=== PATIENT | male | born 1965 | race Caucasian/White ===

== ENCOUNTER 2018-01-08 06:42 | Emergency (ER) | payer BC, OTHER ==
[~2018-01-08] VITALS: Ht 167.6 cm; Wt 86.2 kg
[2018-01-08 06:45] VITALS: TEMP 36.7; Ht 167.6 cm; Wt 86.2 kg
[2018-01-08 08:06] LABS: BASO % 0.7 %; BASO ABS # 0.02 K/uL (0-0.2); EOS % 1.3 %; EOS ABS # 0.04 K/uL (0-0.5); HEMOGLOBIN 15.1 g/dL (14.0-18.0); IG# 0.01 K/uL (0.00-0.02); LYMPH % 36.2 %; LYMPH ABS # 1.11 K/uL (1.2-3.4); MEAN CELL VOLUME 87.3 fL (80-100); MEAN CORPUSCULAR HEMOGLOBIN 31.4 pg (25-34); MEAN PLATELET VOLUME 9.1 fL (7.4-10.4); MONO % 13.4 %; MONO ABS # 0.41 K/uL (0.11-0.59); NEUT % 48.1 %; NEUT ABS # 1.48 K/uL (1.4-6.5); PLATELET COUNT 127 K/uL (130-400); RED CELL DISTRIBUTION WIDTH CV 13.2 % (11.5-14.5); RED CELL DISTRIBUTION WIDTH SD 41.7 fL (36.4-46.3); WHITE BLOOD COUNT 3.07 K/uL (4.8-10.8)
--- NOTE | 2018-01-08 08:16 | DIAGNOSTIC IMAGING REPORT ---
HEAD WITHOUT CONTRAST (CT) CLINICAL HISTORY: 52 years-old Male with L FACIAL DROOP. Acute left-sided facial droop TECHNIQUE: Multiple axial CT images of the head were obtained without contrast. A dose lowering technique was utilized adhering to the principles of ALARA. CT DOSE: 614.27 mGy.cm COMPARISON: None. FINDINGS: No acute intracranial hemorrhage, midline shift, intracranial mass, hydrocephalus, territorial ischemia or abnormal extra-axial collection. Nonspecific mild asymmetric prominence of the right temporal horn lateral ventricle. The calvarium is intact. The paranasal sinuses, mastoid air cells, and middle ear cavities are clear. IMPRESSION: No acute intracranial abnormality. The above report was generated using voice recognition software. It may contain grammatical, syntax or spelling errors. Electronically signed by: Saulo Orozco M.D. 01/08/2018 8:14 AM Dictated Date/Time: 01/08/2018 8:11 AM
[2018-01-08 08:24] LABS: ALT/SGPT 26 U/L (12-78); BLOOD UREA NITROGEN 15 mg/dl (7-18); CARBON DIOXIDE 26 mmol/L (21-32); CREATININE 0.92 mg/dl (0.60-1.40); GLUCOSE 107 mg/dl (70-99); POTASSIUM 3.7 mmol/L (3.5-5.1); SODIUM 139 mmol/L (136-145)
[2018-01-08 08:28] LABS: ALKALINE PHOSPHATASE 89 U/L (45-117); AST/SGOT 18 U/L (15-37); TOTAL PROTEIN 7.4 gm/dl (6.4-8.2)
[2018-01-08 08:32] LABS: PTT PATIENT 25.4 SECONDS (21.0-31.0)
[2018-01-08] MEDS ORDERED: DEXAMETHASONE **PF** INJ 10 MG/ML VIAL IV ONE (09:15)
[2018-01-08] MEDS ORDERED: VALA1TAB2 PO (09:31)
[2018-01-08] MEDS ORDERED: PRED20TA PO (09:31)
--- NOTE | 2018-01-08 09:31 | EMERGENCY ROOM VISIT NOTE ---
ED Visit Note First contact with patient: 07:21 CHIEF COMPLAINT: Left facial numbness and weakness 2 days HISTORY OF PRESENT ILLNESS: Patient is an otherwise healthy 52-year-old white male who presents the emergency department for left-sided facial numbness. He states that he woke up with his symptoms about 48 hours ago. He reports that the left side of his face is numb, and that he is unable to close his left eyelid completely. He states that coworkers told him the left side of his face looked different. He notes asymmetry in his face when he tries to smile, and has had difficulty eating and drinking as he has been dribbling out the left side of his mouth. He called his family doctor yesterday and was referred to the emergency department, but was too tired after he got home from work so thus presented early this morning. He reports a mild headache prior to the onset of his symptoms on Saturday which was alleviated with Aleve. He otherwise reports that he has been feeling well without any recent illnesses or fever or chills. He states that his vision is normal, sensation and taste of tongue is normal. The patient denies any neck pain. He does [employer] work. REVIEW OF SYSTEMS: Review of systems as per HPI. All other systems reviewed were negative. 10 systems reviewed. PMH: Electronic medical records are reviewed and summarized as above/below. See Problem List. Luci. SOCIAL HISTORY: Patient lives at home by himself. Employed. Non-smoker. PHYSICAL EXAM: Vital Signs: Reviewed Nurse's notes. CONSTITUTIONAL: Patient is a pleasant, well-appearing 52-year-old white male who is awake and alert and in no acute distress. EYES: Pupils equal, round, reactive to light and accommodation. EOMs intact without nystagmus. Sclera are anicteric. ENT: Tympanic membranes intact, with normal landmarks. External canals are clear. Oral and nasopharynx are clear. Mucous membranes are moist, no lesions , tongue and gums appear normal. NECK: No bruits auscultated. Supple without lymphadenopathy. No thyromegaly. No meningeal signs. Full active range of motion without discomfort. CARDIOVASCULAR: Regular rate and rhythm, with normal S1 and S2, no murmur or gallop or rub is heard. No carotid bruits auscultated. No JVD. Peripheral pulses easily palpable. RESPIRATORY: Breath sounds equal and clear to auscultation without wheezes, rales, or rhonchi heard. Full and equal chest expansion without accessory muscle use or retractions. INTEGUMENTARY: No lesions or rash, normal skin turgor. LYMPH: No lymphadenopathy. NEURO: Patient is awake, alert and oriented 4. Cranial nerves II through and VIII through XII are intact. Examination of the 7th cranial nerve showed that the patient is unable to raise his left eyebrow or close his left eye completely. He has droop of the left side of his face, has loss of the nasolabial crease. He is unable to keep his left eye closed against resistance , has asymmetry with smile and frown. Upper and lower extremity strength is equal and symmetrical bilaterally. Normal DTRs. Normal gait. EMERGENCY DEPARTMENT COURSE: The patient was seen and evaluated as above. 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 He is an otherwise healthy 52-year-old male. IV lock was initiated and laboratory studies were collected. Head CT was performed to evaluate any intracranial pathology, and was negative. CBC with differential does not note a leukocytosis , white count is actually low at 3.07. His sed rate and CRP are not elevated. Electrolytes, renal function, and LFTs are unremarkable. Lyme screen is negative. The patient was discussed with attending physician. He was given valacyclovir 1000 mg orally and Decadron 10 mg IV. Treatment recommendations were reviewed with the patient. He will be placed on a week of valacyclovir and prednisone. Eye care was also discussed. He was encouraged to follow-up with his primary care provider for recheck, and welcome to return to the emergency department at any point for worsening symptoms. Medication reconciliation: I attest that I have personally reviewed the patient' s current medication list. Blood pressure screening: Patient was found to have a slightly elevated blood pressure due to circumstances. I do not believe that the patient requires hypertension monitoring. Differential diagnoses entertained included Valenzuela's palsy, facial nerve palsy, herpes zoster infection, otitis media, Lyme disease, Guillain [place], stroke, mass or malignancy, among others. HEAD WITHOUT CONTRAST (CT) CLINICAL HISTORY: 52 years-old Male with L FACIAL DROOP. Acute left-sided facial droop TECHNIQUE: Multiple axial CT images of the head were obtained without contrast. A dose lowering technique was utilized adhering to the principles of ALARA. CT DOSE: 614.27 mGy.cm COMPARISON: None. FINDINGS: No acute intracranial hemorrhage, midline shift, intracranial mass, hydrocephalus, territorial ischemia or abnormal extra-axial collection. Nonspecific mild asymmetric prominence of the right temporal horn lateral ventricle. The calvarium is intact. The paranasal sinuses, mastoid air cells, and middle ear cavities are clear. IMPRESSION: No acute intracranial abnormality. Problem List Surgical Problems: (1) History of hip surgery Status: Resolved Current/Historical Medications Scheduled Prednisone (Prednisone), 3 TAB PO DAILY Valacyclovir Hcl (Valtrex), 1,000 MG PO TID Allergies Coded Allergies: No Known Allergies (Unverified , 01/08/18) Vital Signs Date Time Temp Pulse Resp B/P (MAP) Pulse Ox O2 Delivery O2 Flow Rate FiO2 01/08/18 09:33 61 16 143/100 95 Room Air 01/08/18 08:40 56 16 127/92 96 Room Air 01/08/18 06:45 36.7 77 18 139/105 97 Room Air Laboratory Results 01/08/18 08:00 Red Blood Count 4.81, Mean Corpuscular Volume 87.3, Mean Corpuscular Hemoglobin 31.4, Mean Corpuscular Hemoglobin Concent 36.0, Mean Platelet Volume 9.1, Neutrophils (%) (Auto) 48.1, Lymphocytes (%) (Auto) 36.2, Monocytes (%) (Auto) 13.4, Eosinophils (%) (Auto) 1.3, Basophils (%) (Auto) 0.7, Neutrophils # (Auto ) 1.48, Lymphocytes # (Auto) 1.11, Monocytes # (Auto) 0.41, Eosinophils # (Auto ) 0.04, Basophils # (Auto) 0.02 01/08/18 08:00 Test 01/08/18 08:00 White Blood Count 3.07 K/uL (4.8-10.8) Red Blood Count 4.81 M/uL (4.7-6.1) Hemoglobin 15.1 g/dL (14.0-18.0) Hematocrit 42.0 % (42-52) Mean Corpuscular Volume 87.3 fL (80-100) Mean Corpuscular Hemoglobin 31.4 pg (25-34) Mean Corpuscular Hemoglobin Concent 36.0 g/dl (32-36) Platelet Count 127 K/uL (130-400) Mean Platelet Volume 9.1 fL (7.4-10.4) Neutrophils (%) (Auto) 48.1 % Lymphocytes (%) (Auto) 36.2 % Monocytes (%) (Auto) 13.4 % Eosinophils (%) (Auto) 1.3 % Basophils (%) (Auto) 0.7 % Neutrophils # (Auto) 1.48 K/uL (1.4-6.5) Lymphocytes # (Auto) 1.11 K/uL (1.2-3.4) Monocytes # (Auto) 0.41 K/uL (0.11-0.59) Eosinophils # (Auto) 0.04 K/uL (0-0.5) Basophils # (Auto) 0.02 K/uL (0-0.2) RDW Standard Deviation 41.7 fL (36.4-46.3) RDW Coefficient of Variation 13.2 % (11.5-14.5) Immature Granulocyte % (Auto) 0.3 % Immature Granulocyte # (Auto) 0.01 K/uL (0.00-0.02) Erythrocyte Sedimentation Rate 9 mm/hr (0-14) Prothrombin Time 10.3 SECONDS (9.0-12.0) Prothromb Time International Ratio 1.0 (0.9-1.1) Activated Partial Thromboplast Time 25.4 SECONDS (21.0-31.0) Partial Thromboplastin Ratio 1.0 Anion Gap 5.0 mmol/L (3-11) Est Creatinine Clear Calc Drug Dose 97.7 ml/min Estimated GFR () 111.2 Estimated GFR (Non- 96.0 BUN/Creatinine Ratio 16.0 (10-20) Calcium Level 9.0 mg/dl (8.5-10.1) Magnesium Level 2.4 mg/dl (1.8-2.4) Total Bilirubin 0.5 mg/dl (0.2-1) Aspartate Amino Transf (AST/SGOT) 18 U/L (15-37) Alanine Aminotransferase (ALT/SGPT) 26 U/L (12-78) Alkaline Phosphatase 89 U/L (45-117) C-Reactive Protein < 0.29 mg/dl (0-0.29) Total Protein 7.4 gm/dl (6.4-8.2) Albumin 4.0 gm/dl (3.4-5.0) Globulin 3.4 gm/dl (2.5-4.0) Albumin/Globulin Ratio 1.2 (0.9-2) Lyme Disease IgG Antibody NEG (NEG) Lyme Disease IgM Antibody NEG (NEG) Medications Administered Medications (Trade) Dose Ordered Sig/Yadiel Route Start Time Stop Time Status Last Admin Dose Admin Dexamethasone Sodium Phosphate (Dexamethasone Inj Pf) 10 mg NOW ONCE IV 01/08/18 09:15 01/08/18 09:16 DC 01/08/18 09:24 10 MG Valacyclovir HCl (Valtrex Tab) 1,000 mg NOW ONCE PO 01/08/18 09:15 01/08/18 09:16 DC 01/08/18 09:24 1,000 MG Departure Information Impression Primary Impression: Valenzuela's palsy Prescriptions Valacyclovir Hcl (VALTREX) 1 Gm Tab 1000 MG PO TID for 7 Days, #21 TAB Prov: Fara Mary PA 01/08/18 Prednisone (Prednisone) 20 Mg Tab 3 TAB PO DAILY for 7 Days, #21 TAB Prov: Fara Mary PA 01/08/18 Referrals Swetha Littlejohn C.RXaviNWandy (PCP) Patient Instructions [facility] Additional Instructions Prednisone 60mg: Once daily until the prescription is finished. It is best to take this earlier in the day as some patients note occasional difficulty falling asleep when taken in the late evening. Valacyclovir : 1000 mg three times daily for one week. Lubricating eye drops (available over the counter) should be applied every hour while the patient is awake Use a lubricating eye ointment at night and wear protective glasses/goggle/eye shield. Patches can be used at night, but tape should not be placed directly on the eyelid since the patch could slip and abrade the cornea. Follow up with your family doctor next week for recheck.
[2018-01-08 09:33] VITALS: BP 143/100; PULSE 61; O2SAT 95
== END 2018-01-08 09:42 | disposition home or self-care (01) ==
LOC: C.EDB 06:43
DX: G51.0 Bell's palsy (principal); Z98.890 Other specified postprocedural states

== ENCOUNTER 2021-09-02 09:57 | Inpatient (IN) ==
[2021-09-02] MEDS ORDERED: dexAMETHasone**PF** 10 MG/ML VIAL IV ONE (10:28)
--- NOTE | 2021-09-02 10:33 | Emergency Department Note ---
History of Present Illness General Chief complaint: Shortness of Breath/Dyspnea Stated complaint: COVID LAST SATURDAY SOB Time Seen by Provider: 09/02/21 10:15 Source: patient Mode of arrival: ambulatory Limitations: no limitations History of Present Illness Provider complaint: Shortness of breath, cough, Covid positive Onset (ago): day(s) 10 Exacerbated By: + none Associated symptoms: + chest pain, + cough, + fever/chills, + malaise and + shortness of breath; no headaches, no loss of appetite or no nausea/vomiting Treatments prior to arrival: none This is a 55-year-old male who presents emergency department with known coronavirus complaining of increased cough and shortness of breath. Patient states his symptoms began approximately 12 days ago with mild rhinorrhea and sore throat. He states symptoms began to involve the first few days and he was seen and evaluated here and tested positive for Covid. He was told to quarantine for 10 days. He states he has been doing so and would have been his last day of quarantine. Patient states he does live alone, however is concerned that his cough and breathing has gotten worse. Patient complains of soreness in his bilateral ribs and bilateral flank from frequent forceful coughing. He states his cough produces a yellow-colored sputum, he denies hemoptysis. He states he did have one episode of diarrhea however denies any other nausea or vomiting or change in bowel movements. Denies any leg swelling, rash or sores. Patient states he is intermittently had low-grade fevers. Patient states when he was a child he does have asthma and is young adult he did smoke although states he gave that up several years ago. He states he did contact his PCP after his positive Covid test and was started on prednisone and azithromycin. He states today would be his last day of azithromycin and he is in the middle of a prednisone taper that would end on Saturday. On room air, patient 86% at bedside during my interview. Pt seen during a time of high acuity and national emergency pandemic while wearing PPE. Home Medications Medication Instructions Recorded Confirmed Type ibuprofen 600 mg tablet 600 mg PO Q8H PRN 08/25/21 09/02/21 History albuterol sulfate 90 mcg/actuation 2 puff INHALATION QID PRN #8.5 g 08/29/21 09/02/21 Rx aerosol inhaler azithromycin 500 mg tablet 500 mg PO DAILY 5 Days #5 tab 08/29/21 09/02/21 Rx prednisone 20 mg tablet 20 mg PO .COMPLEX #18 tab 08/29/21 09/02/21 Rx naproxen sodium 220 mg tablet 680 mg PO Q8H PRN 09/02/21 09/02/21 History (Aleve) Allergies Allergy/AdvReac Type Severity Reaction Status Date / Time No Known Allergies Allergy Unverified 09/02/21 11:03 Past Med/Surg History Medical History (Updated 09/02/21 @ 20:55 by Mayuri Naranjo DO) Acute sinus infection Bronchitis Cough Social History Smoking Status: Former smoker Tobacco Type: Cigarettes Hx Alcohol Use: Yes Alcohol type: beer Hx Substance Use: No Preferred Language: Tajik Communication Ability: Effective 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 Beliefs That Will Affect Care: None Current Living Situation: Alone Other Information That Helps Us Care for You: No Feels Safe at Home: Yes Safety Concerns: Feels Safe At This Time Assistive Devices: Glasses and Oxygen - Continuous Review of Systems A total of 10 systems reviewed and were otherwise negative All systems reviewed & are unremarkable except as noted in HPI & below Physical Exam Vital Signs Vital Signs - 24 hr 09/02/21 10:03 09/02/21 11:10 09/02/21 11:21 Temperature 37.2 C Temperature Source Temporal Artery Scan Pulse Rate 103 H 93 H Pulse Rate from SpO2 Sensor 92 H Pulse Rhythm Regular Pulse Strength Normal Respiratory Rate 20 22 Respiratory Effort / Characteristics Non-Labored Spontaneous Respiratory Depth Normal Blood Pressure 136/96 111/84 Blood Pressure Mean 109 93 Blood Pressure Position Sitting Pulse Oximetry 88 L 92 Oxygen Delivery Method Room Air Nasal Cannula Oxygen Flow Rate 2 Sepsis Recent Fever Within 48 Hours No Sepsis New/Unexplained Change in Mental Status N/A Sepsis Action Taken by Nursing No Action Required 09/02/21 11:30 09/02/21 12:00 09/02/21 12:30 Temperature Temperature Source Pulse Rate 97 H 86 85 Pulse Rate from SpO2 Sensor 101 H 85 85 Pulse Rhythm Pulse Strength Respiratory Rate 23 23 20 Respiratory Effort / Characteristics Respiratory Depth Blood Pressure 90/76 L 126/94 Blood Pressure Mean 80 104 Blood Pressure Position Pulse Oximetry 93 93 93 Oxygen Delivery Method Nasal Cannula Nasal Cannula Nasal Cannula Oxygen Flow Rate 2 2 3 Sepsis Recent Fever Within 48 Hours Sepsis New/Unexplained Change in Mental Status Sepsis Action Taken by Nursing 09/02/21 13:00 Temperature Temperature Source Pulse Rate 89 Pulse Rate from SpO2 Sensor Pulse Rhythm Pulse Strength Respiratory Rate 18 Respiratory Effort / Characteristics Respiratory Depth Blood Pressure Blood Pressure Mean Blood Pressure Position Pulse Oximetry Oxygen Delivery Method Oxygen Flow Rate Sepsis Recent Fever Within 48 Hours Sepsis New/Unexplained Change in Mental Status Sepsis Action Taken by Nursing GENERAL: alert, unwell appearing, well nourished, no distress, non-toxic EYE EXAM: normal conjunctiva, PERRL and EOM's grossly intact OROPHARYNX: no exudate, no erythema, lips, buccal mucosa, and tongue normal and mucous membranes are moist NECK: supple, no nuchal rigidity, no adenopathy, non-tender LUNGS: Clear but decreased to auscultation. Normal chest wall mechanics, no w/r/r HEART: no murmurs, S1 normal and S2 normal ABDOMEN: abdomen soft, non-tender, normo-active bowel sounds, no masses, no rebound or guarding. BACK: Back is symmetrical on inspection and there is no deformity, no midline tenderness, no CVA tenderness. SKIN: no rashes and no bruising UPPER EXTREMITIES: upper extremities are grossly normal. FROM, nml pulses b/l. LOWER EXTREMITIES: No pitting edema. FROM, nml pulses b/l. NEURO EXAM: Normal sensorium, cranial nerves II-XII grossly intact, normal speech, no gross weakness of arms, no gross weakness of legs. Gross sensation intact. Course Administered Medications Albuterol (Albut/Ipratrop 3mg/0.5mg Neb 3 Ml Vial) 3 ml NEB Q4R PRN PRN Reason: Dyspnea Stop: 10/03/21 14:31 Last Admin: 09/03/21 15:11 Dose: 3 ml Documented by: [id number] Benzonatate (Benzonatate 100 Mg Capsule) 200 mg PO TID PRN PRN Reason: cough Stop: 10/03/21 08:59 Last Admin: 09/03/21 07:45 Dose: 200 mg Documented by: [id number] Admin: 09/02/21 21:45 Dose: 200 mg Documented by: [id number] Dexamethasone 6 mg/ Syringe 1.5 mls @ 1 mls/min IV DAILY TAYLOR Stop: 09/13/21 08:59 Last Admin: 09/03/21 07:39 Dose: 1 mls/min Documented by: [id number] Ibuprofen (Ibuprofen 600 Mg Tab) 600 mg PO Q8H PRN PRN Reason: Pain Stop: 10/02/21 15:27 Last Admin: 09/03/21 08:12 Dose: 600 mg Documented by: [id number] Admin: 09/02/21 20:17 Dose: 600 mg Documented by: [id number] Ondansetron HCl (Ondansetron Inj 2 Mg/Ml 2 Ml Vial) 4 mg IV Q6H PRN PRN Reason: Nausea Stop: 10/02/21 15:27 Last Admin: 09/02/21 20:13 Dose: 4 mg Documented by: [id number] Discontinued Medications Acetaminophen (Acetaminophen 500 Mg Tab) 1,000 mg PO NOW STA Stop: 09/02/21 13:18 Last Admin: 09/02/21 13:45 Dose: 1,000 mg Documented by: [id number] Albuterol (Albut/Ipratrop 3mg/0.5mg Neb 3 Ml Vial) 3 ml NEB NOW STA Stop: 09/03/21 00:36 Last Admin: 09/03/21 00:57 Dose: 3 ml Documented by: [id number] Dexamethasone Sodium Phosphate (DexamethasonePf 10 Mg/Ml Vial) 6 mg IV NOW ONE Stop: 09/02/21 10:29 Last Admin: 09/02/21 11:02 Dose: 6 mg Documented by: [id number] Furosemide (Furosemide Inj 20 Mg/2 Ml Vial) 20 mg IV ONE ONE Stop: 09/03/21 08:06 Last Admin: 09/03/21 10:01 Dose: 20 mg Documented by: [id number] Sodium Chloride (Nss 1000ml) 1,000 mls @ 250 mls/hr IV .Q4H TAYLOR Stop: 10/02/21 10:29 Last Admin: 09/02/21 18:26 Dose: Not Given Documented by: [id number] Infusion: 09/02/21 16:56 Dose: 0 mls/hr Documented by: [id number] Admin: 09/02/21 11:03 Dose: 250 mls/hr Documented by: [id number] Menthol (Cough Drop (Sugar Free) Brenda 24 Brenda/1 Box) Confirm Administered Dose 24 brenda BUCCAL .STK-MED ONE Stop: 09/02/21 20:26 Last Admin: 09/02/21 20:25 Dose: 24 brenda Documented by: [id number] Naproxen (Naproxen 250 Mg Tab) 250 mg PO NOW STA Stop: 09/02/21 13:18 Last Admin: 09/02/21 13:46 Dose: 250 mg Documented by: [id number] Medical Decision Making Differential Diagnosis Differential diagnoses includes but is not limited to pneumonia, bronchitis, COPD/Asthma exacerbation, pneumothorax, pulmonary embolism, congestive heart failure, acute coronary syndrome Medical Records Attestation: I reviewed the patient's medical records. Home Medications Current Medication List: was personally reviewed by me Laboratory Data Attestation: I reviewed the patient's lab results. Result diagrams: 09/03/21 08:43 09/03/21 08:43 Lab Results 09/02/21 09/02/21 09/02/21 Range/Units 11:05 11:05 13:04 WBC 5.42 (4.8-10.8) K/uL RBC 4.71 (4.7-6.1) M/uL Hgb 14.6 (14.0-18.0) g/dL Hct 42.1 (42-52) % MCV 89.4 (80-100) fL MCH 31.0 (25-34) pg MCHC 34.7 (32-36) g/dL RDW Std Deviation 46.1 (36.4-46.3) fL RDW Coeff of [place] 14.0 (11.5-14.5) % Plt Count 90 L (130-400) K/uL MPV 9.7 (7.4-10.4) fL Immature Gran % (Auto) 0.9 % Neut % (Auto) 87.3 % Lymph % (Auto) 9.2 % [place] % (Auto) 2.6 % Eos % (Auto) 0.0 % Baso % (Auto) 0.0 % Neut # (Auto) 4.73 (1.4-6.5) K/uL Lymph # (Auto) 0.50 L (1.2-3.4) K/uL [place] # (Auto) 0.14 (0.11-0.59) K/uL Eos # (Auto) 0.00 (0-0.5) K/uL Baso # (Auto) 0.00 (0-0.2) K/uL Immature Gran # (Auto) 0.05 H (0.00-0.02) K/uL Platelet Estimate Decreased L (Normal) Sodium 138 (136-145) mmol/L Potassium 3.5 (3.5-5.1) mmol/L Chloride 105 (98-107) mmol/L Carbon Dioxide 26 (21-32) mmol/L Anion Gap 7.0 (3-11) BUN 10 (7-18) mg/dl Creatinine 0.87 (0.6-1.4) mg/dl Est Cr Clr Drug Dosing 99.7 ml/min Est GFR ( Amer) 113.4 ml/min Est GFR (Non-Af Amer) 97.8 ml/min BUN/Creatinine Ratio 12.0 (10-20) Glucose 87 (70-99) mg/dl Calcium 8.9 (8.5-10.1) mg/dl Magnesium 1.9 (1.8-2.4) mg/dl Total Bilirubin 0.6 (0.2-1) mg/dl AST 29 (15-37) U/L ALT 40 (12-78) U/L Alkaline Phosphatase 101 (45-117) U/L Troponin I < 0.015 (0-0.045) ng/ml NT-Pro-B Natriuret Pep 11 (0-900) pg/ml Total Protein 7.1 (6.4-8.2) gm/dl Albumin 3.1 L (3.4-5.0) gm/dl Globulin 4.0 (2.5-4.0) gm/dl Albumin/Globulin Ratio 0.8 L (0.9-2) COVID-19 Eval Order Covid19 at [facility] SARS-CoV-2 (PCR) (Negative) 09/02/21 Range/Units 13:04 WBC (4.8-10.8) K/uL RBC (4.7-6.1) M/uL Hgb (14.0-18.0) g/dL Hct (42-52) % MCV (80-100) fL MCH (25-34) pg MCHC (32-36) g/dL RDW Std Deviation (36.4-46.3) fL RDW Coeff of [place] (11.5-14.5) % Plt Count (130-400) K/uL MPV (7.4-10.4) fL Immature Gran % (Auto) % Neut % (Auto) % Lymph % (Auto) % [place] % (Auto) % Eos % (Auto) % Baso % (Auto) % Neut # (Auto) (1.4-6.5) K/uL Lymph # (Auto) (1.2-3.4) K/uL [place] # (Auto) (0.11-0.59) K/uL Eos # (Auto) (0-0.5) K/uL Baso # (Auto) (0-0.2) K/uL Immature Gran # (Auto) (0.00-0.02) K/uL Platelet Estimate (Normal) Sodium (136-145) mmol/L Potassium (3.5-5.1) mmol/L Chloride (98-107) mmol/L Carbon Dioxide (21-32) mmol/L Anion Gap (3-11) BUN (7-18) mg/dl Creatinine (0.6-1.4) mg/dl Est Cr Clr Drug Dosing ml/min Est GFR ( Amer) ml/min Est GFR (Non-Af Amer) ml/min BUN/Creatinine Ratio (10-20) Glucose (70-99) mg/dl Calcium (8.5-10.1) mg/dl Magnesium (1.8-2.4) mg/dl Total Bilirubin (0.2-1) mg/dl AST (15-37) U/L ALT (12-78) U/L Alkaline Phosphatase (45-117) U/L Troponin I (0-0.045) ng/ml NT-Pro-B Natriuret Pep (0-900) pg/ml Total Protein (6.4-8.2) gm/dl Albumin (3.4-5.0) gm/dl Globulin (2.5-4.0) gm/dl Albumin/Globulin Ratio (0.9-2) COVID-19 Eval Order SARS-CoV-2 (PCR) POSITIVE A* (Negative) Imaging Data Radiologist's Impression: Chest X-Ray 09/02/21 10:29 XR chest 1V portable HISTORY: Cough. Shortness of breath. COMPARISON: Chest 08/25/2021. FINDINGS: No pneumothorax. No pleural fusions. The heart is normal in size. Interval follow-up small patchy airspace opacities within the bilateral lower lung zones. This likely represents a developing viral pneumonia. No evidence for pulmonary edema. IMPRESSION: Small patchy airspace opacities within the lower lung zones which likely represents a viral pneumonia. ACT 112: Negative or not required by law. Electronically signed by: Zach Sierra M.D. 09/02/2021 10:51 AM ECG Data Attestation: I personally reviewed and interpreted this ECG as follows: Indication: + SOB/dyspnea Rate (beats per minute): 91 Rhythm: + normal sinus ECG Intervals/blocks: + Normal QRS and + Normal QT ECG [place]: + Normal ECG ST segments: + Nonspecific ST abnormalities MDM Narrative This is a 55 yo male with known COVID who presents due to worsening SOB and hypo anoop. Patient felt improved here on NC. VS otherwise stable. Labs reassuring, thrombocytopenia likely secondary to viral process. Patient has been taking prednisone and azithromycin from PCP. CXR consistent with pna. Trop negative. I do not suspect occult PE, pericarditis/myocarditis. Patient remained hemodynamically stable while in the ER and felt improved with supplemental oxygen via NC. Case discussed with hospitalist for additional evaluation. An order was placed for continuous cardiac monitoring. The monitor shows a rate of _90__ with _normal sinus_ rhythm. Impression & Plan Dyspnea, COVID-19, Hypoxia, Thrombocytopenia Discharge Plan Visit Data Chief Complaint: Shortness of Breath/Dyspnea Stated Complaint: COVID LAST SATURDAY SOB Discharge Problem: Dyspnea, COVID-19, Hypoxia, Thrombocytopenia Patient Disposition: Admitted As Inpatient Discharge Instructions Interventions: ED Discharge Assessment Last Done: 09/02/21 14:44 Discharge Problem: Dyspnea Qualifiers: Dyspnea type: shortness of breath Qualified Code(s): R06.02 - Shortness of breath
--- NOTE | 2021-09-02 10:52 | XRay Report ---
XR chest 1V portable HISTORY: Cough. Shortness of breath. COMPARISON: Chest 08/25/2021. FINDINGS: No pneumothorax. No pleural fusions. The heart is normal in size. Interval follow-up small patchy airspace opacities within the bilateral lower lung zones. This likely represents a developing viral pneumonia. No evidence for pulmonary edema. IMPRESSION: Small patchy airspace opacities within the lower lung zones which likely represents a viral pneumonia . ACT 112: Negative or not required by law. Electronically signed by: Zach Sierra M.D. 09/02/2021 10:51 AM
[2021-09-02] MEDS: SODIUM CHLORIDE 0.9% 1000ML 1,000 ML IV SCH ×2 (11:03→18:26)
[2021-09-02 11:26] LABS: Hematocrit (blood only) 42.1 % (42-52); Hemoglobin 14.6 g/dL (14.0-18.0); Immature Granulocytes # (auto) 0.05 K/uL (0.00-0.02); Immature Granulocytes % (auto) 0.9 %; Lymphocytes % (auto) 9.2 %; Mean Corpuscular Hgb Conc 34.7 g/dL (32-36); Mean Corpuscular Volume 89.4 fL (80-100); Mean Platelet Volume 9.7 fL (7.4-10.4); Monocytes # (auto) 0.14 K/uL (0.11-0.59); Monocytes % (auto) 2.6 %; Neutrophils # (auto) 4.73 K/uL (1.4-6.5); Neutrophils % (auto) 87.3 %; Platelet Count 90 K/uL (130-400); Platelet Estimate Decreased (Normal); RDW Standard Deviation 46.1 fL (36.4-46.3); Red Blood Count 4.71 M/uL (4.7-6.1); White Blood Count 5.42 K/uL (4.8-10.8)
[2021-09-02 11:29] LABS: Alanine Aminotransferase 40 U/L (12-78); Albumin Level 3.1 gm/dl (3.4-5.0); Aspartate Aminotransferase 29 U/L (15-37); Blood Urea Nitrogen 10 mg/dl (7-18); Calcium 8.9 mg/dl (8.5-10.1); Carbon Dioxide 26 mmol/L (21-32); Chloride 105 mmol/L (98-107); Creatinine Clr Calc Pharmacy 99.7 ml/min; Est GFR (African American) 113.4 ml/min; Est GFR (Non-African American) 97.8 ml/min; Glucose 87 mg/dl (70-99); Magnesium 1.9 mg/dl (1.8-2.4); Potassium 3.5 mmol/L (3.5-5.1); Sodium 138 mmol/L (136-145)
[2021-09-02 11:34] LABS: Albumin Globulin Ratio 0.8 (0.9-2); Alkaline Phosphatase 101 U/L (45-117); Bilirubin,Total 0.6 mg/dl (0.2-1); NT Pro B Type Natriuretic Pept 11 pg/ml (0-900); Total Protein 7.1 gm/dl (6.4-8.2); Troponin I < 0.015 ng/ml (0-0.045)
--- NOTE | 2021-09-02 12:44 | History & Physical Report ---
Date of Service September 02, 2021 Assessment & Plan (1) Acute respiratory failure with hypoxia: Plan: Acute hypoxic respiratory failure 2/2 COVID-19 pneumonia No leukocytosis Hemoglobin normal Platelet count 90 No kidney disease at baseline, creatinine on admission 0.87 Troponin negative Covid + 08/25/2021 Symptom onset 12 days prior to presentation to ER CXR: Small patchy airspace opacities with lower lung zones consistent with viral pneumonia Patient does not meet criteria for remdesivir due to symptom onset greater than 10 days prior Patient not requiring high flow nasal cannula, is not a candidate for parasitic tocilizumab at this time Admit to medical, Covid - +Dexamethasone 6mg x 10 days Thrombocytopenia suspect 2/2 viral suppression Historically normal platelets Lyme negative in April. IF persistent could consider anaplasma addon. Defer at this time (2) Acute viral syndrome: Plan: - See above (3) COVID-19: Plan: - See above (4) Cough: Plan: - Tessalon Plan: DVT PPx: COVID Lovenox Diet: Regular Dispo: Med/Surg CODE STATUS: FULL CODE History of Present Illness Chief Complaint: Dyspnea, COVID19 Primary Care Provider: ANA Kuo Pt is a 55-year-old male who presents to the emergency department with increasing cough and shortness of breath, known Covid positive with symptom onset approximately 12 days ago. History of childhood asthma and tobacco use, no recent tobacco use and no recent asthma problems. Following his Covid test as outpatient was started on prednisone and azithromycin, reports he still feels his breathing is worsening. SPO2 sat 86% at time of ER provider assessment. +Cough, dry sometimes with white/light yellow sputum. +LH/+Dizzy. Trying ot drink fluids, but si not very hungry. Has had 10lbs of weight loss since becoming ill. Diarrhea last night, loose, brown. Initially had severe fever, chills, rigors. NO fever chills rigors in last 6 days, just shortness of breath and inability to lay down due to severe SoB. No personal or fhx of heart problems/heart failure/ND. Was on azithromycin and prednisone. Did not help. WOrks for [employer] and was going to get his vaccinations this past Saturday, but got sick before then. Has not had any vaccination. No other medical problems. Childhood asthma, has not used albuterol since a kid. Last 6-7 nights breathing so bad can't breathe or catch his breath. Can't sleep from shortness of breath. Lives along, had been laying on the floor just to catch his breath. Medical History: Reviewed Medications: Reviewed FHX: denies heart disease. Non contributory. Surgical History: Reviewed Allergies: Reviewed Social History: No tobacco product use, rare social alcohol use. No recreational drug use. Code Status: Full Code Allergies Allergy/AdvReac Type Severity Reaction Status Date / Time No Known Allergies Allergy Unverified 09/02/21 11:03 Home Medications Medication Instructions Recorded Confirmed Type ibuprofen 600 mg tablet 600 mg PO Q8H PRN 08/25/21 09/02/21 History albuterol sulfate 90 mcg/actuation 2 puff INHALATION QID PRN #8.5 g 08/29/21 09/02/21 Rx aerosol inhaler azithromycin 500 mg tablet 500 mg PO DAILY 5 Days #5 tab 08/29/21 09/02/21 Rx prednisone 20 mg tablet 20 mg PO .COMPLEX #18 tab 08/29/21 09/02/21 Rx naproxen sodium 220 mg tablet 680 mg PO Q8H PRN 09/02/21 09/02/21 History (Aleve) Past Med/Surg History Medical History Acute sinus infection Bronchitis Cough Social History Smoking Status: Never smoker Tobacco Type: Cigarettes Feels Safe at Home: Yes Review of Systems Review of Systems: All systems reviewed & are unremarkable except as noted in HPI & below Physical Exam Physical Exam: General: A&Ox3. NAD. Cooperative. HEENT: Atraumatic, normocephalic. Visual acuity and hearing grossly intact. VKIAS. Pulm: Bibasilar crackles, no over rales. No wheezing. Symmetrical chest rise. No increase work of breathing. No respiratory distress. Cardiac: RRR, -mrg. Radial pulses intact and symmetrical. Abdominal: Nontender, nondistended, soft. BS present. Ext: Warm/dry, PT and radial pulses intact and symmetrical. Respiratory Therapy Assistant stength, ankle plantarflexion/dorsiflexion, hip flexion 5/5 bilat. NO lower extremity edema. Results & Data Results & Data ([facility]) Vital Signs (Past 12 Hours) Vital Signs Temp Pulse Resp BP Pulse Ox 09/02/21 12:00 86 23 126/94 93 09/02/21 11:30 97 H 23 90/76 L 93 09/02/21 11:10 93 H 22 111/84 92 09/02/21 10:03 37.2 C 103 H 20 136/96 88 L PG Care Time/CCT Total # of Minutes Spent Total Time Spent with Patient: Total time spent is greater than 50% in coordination of care (as documented) at patient's floor/unit and/or counseling patient: Coding Level of Care Code 84621 Initial Inpt Care Lvl 3 Diagnoses Acute respiratory failure with hypoxia J96.01 Acute viral syndrome B34.9 COVID-19 U07.1 Cough R05
[2021-09-02] MEDS ORDERED: ACETAMINOPHEN 500 MG TAB PO STA (13:17)
[2021-09-02] MEDS ORDERED: NAPROXEN 250 MG TAB PO STA (13:17)
[2021-09-02] MEDS ORDERED: ONDANSETRON INJ 2 MG/ML 2 ML VIAL IV PRN (15:28)
[2021-09-02] MEDS ORDERED: POLYETHYLENE (MIRALAX) 17 GM PACK PO PRN (15:28)
[2021-09-02] MEDS: IBUPROFEN 600 MG TAB PO PRN (20:17)
[2021-09-02] MEDS ORDERED: COUGH DROP (SUGAR FREE) LOZ 24 LOZ/1 BOX BUCCAL ONE (20:25)
[2021-09-02] MEDS: BENZONATATE 100 MG CAPSULE PO PRN (21:45)
[2021-09-03] MEDS ORDERED: ALBUT/IPRATROP 3MG/0.5MG NEB 3 ML VIAL NEB STA (00:35)
[2021-09-03] MEDS: dexAMETHasone 6 MG in SYRINGE 0 ML IV SCH (07:39)
[2021-09-03] MEDS: BENZONATATE 100 MG CAPSULE PO PRN ×2 (07:45→19:37)
--- NOTE | 2021-09-03 07:47 | Electrocardiogram Report ---
Test Reason : Blood Pressure : / mmHG Vent. Rate : 091 BPM Atrial Rate : 091 BPM P-R Int : 166 ms QRS Dur : 098 ms QT Int : 370 ms P-R-T Axes : 040 -15 014 degrees QTc Int : 455 ms Poor data quality, interpretation may be adversely affected Normal sinus rhythm Moderate voltage criteria for LVH, may be normal variant Nonspecific ST abnormality Abnormal ECG When compared with ECG of 18-APR-2021 22:24, No significant change was found Confirmed by Jethro Dover ([id number]) on 09/03/2021 7:47:35 AM Referred By: REFERRED SELF Confirmed By:Franky Dover
[2021-09-03] MEDS ORDERED: FUROSEMIDE INJ 20 MG/2 ML VIAL IV ONE (08:05)
[2021-09-03] MEDS: IBUPROFEN 600 MG TAB PO PRN ×2 (08:12→17:14)
--- NOTE | 2021-09-03 09:06 | Hospitalist Progress Note ---
Date of Service September 03, 2021 Assessment & Plan (1) Acute respiratory failure with hypoxia: Plan: Acute hypoxic respiratory failure 2/2 COVID-19 pneumonia, he was about day 12 into illness on admission CXR with patchy infiltrates in bases lungs clear dexamethasone 6mg IV daily, day 2 no role for Remdesivir or baricitinib at this time, check CRP tomorrow he was drinking a lot of fluids at home and got IV fluids in the ED - will give Lasix 20mg IV today, schedule for qAM to keep negative fluid balance educated on importance of being prone as much as possible incentive spirometer q1H, minimal cough, no sputum so doubt flutter valve would be helpful may get worse before he gets better, he is on 6L this morning, up from 2L on admission if he would need Vapotherm then move to 2nd floor COVID unit, stable to stay on 3rd floor today (2) COVID-19: Plan: about day 12 of illness on admission which fits with typical onset of pneumonia dexamethasone 6mg IV daily Lasix 20mg IV daily to keep lungs dry he is not vaccinated (3) Cough: Plan: - Tessalon PRN, cough is not too bad if it gets more troublesome then try Codeine Plan: DVT PPx: COVID Lovenox Diet: Regular Dispo: Med/Surg CODE STATUS: FULL CODE Admission and Anticipated Discharge Date Admission Date: September 02, 2021 Subjective patient doing okay this morning, a little better than yesterday RN turned oxygen up a lot last night, up to 12L mask however, this morning RN got him down to 6L, no distress, saturations 92% he admits he was drinking a ton of fluids at home as the ED doctor had told him to do so he was not eating much cough is bothersome but not terrible, no fever/chills discussed plan for COVID: dexamethasone, Lasix 20mg IV this morning, prone as much as possible and when not able to prone, lay on side will use incentive spirometer once an hour not making much sputum and lungs clear so will hold off on flutter valve discussed that he should expect to be here at least a week, oxygen levels might get worse before they improve, he understands says he will do whatever we tell him so he gets better Review of Systems Review of Systems: All systems reviewed & are unremarkable except as noted in Subjective Respiratory: + cough, + dyspnea and + dyspnea on exertion Gastrointestinal: + early satiety; no nausea, no vomiting, no constipation and no diarrhea/loose stools Physical Exam Physical Exam: General: well developed, well nourished, middle aged male, + ill appearing, no acute distress Neck: supple, trachea midline, normal thyroid Lungs: clear to auscultation bilaterally, + tachypnea, + cough, no accessory muscle use, no distress Heart: regular S1 and S2, no murmur, peripheral pulses normal, capillary refill normal, no edema Abdomen: soft, NT, ND, + BS, no hepatomegaly, normal to percussion Extremities: normal in appearance, no cyanosis, no petechiae, strength is 5/5 bilaterally Neuro: awake, cooperative, moves all extremities, no focal motor deficits, CN II-XII intact, sensation in extremities intact, normal speech Skin: warm, dry, no rash, normal turgor Psych: Awake, alert oriented x 3, euthymic affect Results & Data Results & Data ([facility]) Vital Signs (Past 12 Hours) Vital Signs Temp Pulse Resp BP Pulse Ox 09/03/21 07:40 36.7 C 80 16 137/92 92 09/03/21 04:00 70 93 09/03/21 03:00 88 L 09/03/21 00:57 84 18 93 09/03/21 00:43 90 22 92 09/03/21 00:32 90 09/03/21 00:28 89 22 93 09/03/21 00:15 86 22 89 L 09/02/21 22:53 36.7 C 75 22 129/87 92 09/02/21 21:28 90 Laboratory Results Laboratory Results - last 24 hr 09/02/21 09/02/21 09/02/21 11:05 11:05 13:04 WBC 5.42 RBC 4.71 Hgb 14.6 Hct 42.1 MCV 89.4 MCH 31.0 MCHC 34.7 RDW Std Deviation 46.1 RDW Coeff of Christiana 14.0 Plt Count 90 L MPV 9.7 Immature Gran % (Auto) 0.9 Neut % (Auto) 87.3 Lymph % (Auto) 9.2 [place] % (Auto) 2.6 Eos % (Auto) 0.0 Baso % (Auto) 0.0 Neut # (Auto) 4.73 Lymph # (Auto) 0.50 L [place] # (Auto) 0.14 Eos # (Auto) 0.00 Baso # (Auto) 0.00 Immature Gran # (Auto) 0.05 H Platelet Estimate Decreased L Sodium 138 Potassium 3.5 Chloride 105 Carbon Dioxide 26 Anion Gap 7.0 BUN 10 Creatinine 0.87 Est Cr Clr Drug Dosing 99.7 Est GFR ( Amer) 113.4 Est GFR (Non-Af Amer) 97.8 BUN/Creatinine Ratio 12.0 Glucose 87 Calcium 8.9 Magnesium 1.9 Total Bilirubin 0.6 AST 29 ALT 40 Alkaline Phosphatase 101 Troponin I < 0.015 NT-Pro-B Natriuret Pep 11 Total Protein 7.1 Albumin 3.1 L Globulin 4.0 Albumin/Globulin Ratio 0.8 L COVID-19 Eval Order Covid19 at [facility] SARS-CoV-2 (PCR) 09/02/21 13:04 WBC RBC Hgb Hct MCV MCH MCHC RDW Std Deviation RDW Coeff of Christiana Plt Count MPV Immature Gran % (Auto) Neut % (Auto) Lymph % (Auto) [place] % (Auto) Eos % (Auto) Baso % (Auto) Neut # (Auto) Lymph # (Auto) [place]imble # (Auto) Eos # (Auto) Baso # (Auto) Immature Gran # (Auto) Platelet Estimate Sodium Potassium Chloride Carbon Dioxide Anion Gap BUN Creatinine Est Cr Clr Drug Dosing Est GFR ( Amer) Est GFR (Non-Af Amer) BUN/Creatinine Ratio Glucose Calcium Magnesium Total Bilirubin AST ALT Alkaline Phosphatase Troponin I NT-Pro-B Natriuret Pep Total Protein Albumin Globulin Albumin/Globulin Ratio COVID-19 Eval Order SARS-CoV-2 (PCR) POSITIVE A* Medications Administered Current Inpatient Medications Acetaminophen (Acetaminophen 325 Mg Tab) 650 mg PO Q4H PRN PRN Reason: pain/fever Stop: 10/02/21 15:27 Benzonatate (Benzonatate 100 Mg Capsule) 200 mg PO TID PRN PRN Reason: cough Stop: 10/03/21 08:59 Last Admin: 09/03/21 07:45 Dose: 200 mg Documented by: Enoxaparin Sodium (Enoxaparin Inj 40 Mg/0.4 Ml Syr) 40 mg SQ Q12 TAYLOR Stop: 10/02/21 20:59 Dexamethasone 6 mg/ Syringe 1.5 mls @ 1 mls/min IV DAILY TAYLOR Stop: 09/13/21 08:59 Last Admin: 09/03/21 07:39 Dose: 1 mls/min Documented by: Ibuprofen (Ibuprofen 600 Mg Tab) 600 mg PO Q8H PRN PRN Reason: Pain Stop: 10/02/21 15:27 Last Admin: 09/03/21 08:12 Dose: 600 mg Documented by: Ondansetron HCl (Ondansetron Inj 2 Mg/Ml 2 Ml Vial) 4 mg IV Q6H PRN PRN Reason: Nausea Stop: 10/02/21 15:27 Last Admin: 09/02/21 20:13 Dose: 4 mg Documented by: Polyethylene Glycol (Polyethylene (Miralax) 17 Gm Pack) 17 gm PO DAILY PRN PRN Reason: Constipation Stop: 10/02/21 15:27 PG Care Time/CCT Total # of Minutes Spent Total Time Spent with Patient: Total time spent is greater than 50% in coordination of care (as documented) at patient's floor/unit and/or counseling patient: Coding Level of Care Code 42142 Subseq Hosp Care Lvl 2 Diagnoses Acute respiratory failure with hypoxia J96.01 COVID-19 U07.1 Cough R05
[2021-09-03 09:27] LABS: Hematocrit (blood only) 42.3 % (42-52); Hemoglobin 14.6 g/dL (14.0-18.0); Immature Granulocytes # (auto) 0.05 K/uL (0.00-0.02); Immature Granulocytes % (auto) 0.6 %; Lymphocytes # (auto) 0.25 K/uL (1.2-3.4); Lymphocytes % (auto) 2.9 %; Mean Corpuscular Hemoglobin 30.9 pg (25-34); Mean Corpuscular Hgb Conc 34.5 g/dL (32-36); Mean Corpuscular Volume 89.6 fL (80-100); Mean Platelet Volume 10.2 fL (7.4-10.4); Monocytes # (auto) 0.22 K/uL (0.11-0.59); Monocytes % (auto) 2.5 %; Neutrophils # (auto) 8.25 K/uL (1.4-6.5); Platelet Count 115 K/uL (130-400); RDW Coefficient of Variation 14.2 % (11.5-14.5); RDW Standard Deviation 47.1 fL (36.4-46.3); Red Blood Count 4.72 M/uL (4.7-6.1); White Blood Count 8.77 K/uL (4.8-10.8)
[2021-09-03 09:51] LABS: BUN Creatinine Ratio 12.1 (10-20); Calcium 9.1 mg/dl (8.5-10.1); Creatinine Clr Calc Pharmacy 116.5 ml/min; Est GFR (African American) 119.9 ml/min; Est GFR (Non-African American) 103.4 ml/min; Potassium 3.9 mmol/L (3.5-5.1)
[2021-09-03 09:54] LABS: Albumin Globulin Ratio 0.7 (0.9-2); Bilirubin,Total 0.5 mg/dl (0.2-1); Globulin 4.2 gm/dl (2.5-4.0); Total Protein 7.2 gm/dl (6.4-8.2)
[2021-09-03] MEDS: ALBUT/IPRATROP 3MG/0.5MG NEB 3 ML VIAL NEB PRN ×2 (15:11→20:35)
[2021-09-03] MEDS ORDERED: CALCIUM CARBONATE 500 MG CHEWABLE TAB PO PRN (19:53)
[2021-09-04] MEDS: IBUPROFEN 600 MG TAB PO PRN (04:20)
[2021-09-04] MEDS: BENZONATATE 100 MG CAPSULE PO PRN ×2 (04:21→17:00)
[2021-09-04] MEDS: ACETAMINOPHEN 325 MG TAB PO PRN ×2 (08:04→17:00)
[2021-09-04] MEDS: dexAMETHasone 6 MG in SYRINGE 0 ML IV SCH (09:20)
--- NOTE | 2021-09-04 12:02 | Hospitalist Progress Note ---
Date of Service September 04, 2021 Assessment & Plan (1) Acute respiratory failure with hypoxia: Plan: Acute hypoxic respiratory failure 2/2 COVID-19 pneumonia, he was about day 12 into illness on admission CXR with patchy infiltrates in bases lungs clear Patient is now on 15 liters oxymask, will transfer patient to PCU,. dexamethasone 6mg IV daily, day 3 no role for Remdesivir or baricitinib at this time, CRP: IS AT 6, THIS IS THE FIRST LEVEL OBTAINED. Continue lasix to maintain negative fluid balance. educated on importance of being prone as much as possible incentive spirometer q1H, minimal cough, no sputum so doubt flutter valve would be helpful (2) COVID-19: Plan: about day 12 of illness on admission which fits with typical onset of pneumonia dexamethasone 6mg IV daily Lasix 20mg IV daily to keep lungs dry he is not vaccinated (3) Cough: Plan: - Tessalon PRN, cough is not too bad if it gets more troublesome then try Codeine (4) Thrombocytopenia: Plan: Patient is having thrombocytopenia. Likely from viral suppression. Platelet count has been improving. will reorder lovenox. Plan: DVT PPx: COVID Lovenox Diet: Regular Dispo: Med/Surg CODE STATUS: FULL CODE Admission and Anticipated Discharge Date Admission Date: September 02, 2021 Subjective Patient reports he is comofrtable at this time. He is proning. He states that at night he gets more SOB. Review of Systems Review of Systems: All systems reviewed & are unremarkable except as noted in HPI & below Physical Exam Physical Exam: General: well developed, well nourished, middle aged male, no acute distress Neck: supple, trachea midline, normal thyroid Lungs: clear to auscultation bilaterally, + tachypnea, + cough, no accessory muscle use, no distress Heart: regular S1 and S2, no murmur, peripheral pulses normal, capillary refill normal, no edema Abdomen: soft, NT, ND, + BS, no hepatomegaly, normal to percussion Extremities: normal in appearance, no cyanosis, no petechiae, strength is 5/5 bilaterally Neuro: awake, cooperative, moves all extremities, no focal motor deficits, CN II-XII intact, sensation in extremities intact, normal speech Skin: warm, dry, no rash, normal turgor Psych: Awake, alert oriented x 3, euthymic affect Results & Data Results & Data ([facility]) Vital Signs (Past 12 Hours) Vital Signs Temp Pulse Resp BP Pulse Ox 09/04/21 07:56 36.9 C 81 18 138/89 88 L 09/04/21 06:22 64 92 09/04/21 02:07 68 20 91 PG Care Time/CCT Total # of Minutes Spent Total Time Spent with Patient: Total time spent is greater than 50% in coordination of care (as documented) at patient's floor/unit and/or counseling patient: Coding Level of Care Code 07890 Subseq Hosp Care Lvl 3 Diagnoses Acute respiratory failure with hypoxia J96.01 COVID-19 U07.1 Cough R05 Thrombocytopenia D69.6 Time Spent (min) 35
[2021-09-04] MEDS ORDERED: FUROSEMIDE 40 MG/4 ML VIAL IV ONE (12:04)
[2021-09-04] MEDS: PANTOprazole 40 MG TAB PO SCH (16:56)
[2021-09-04] MEDS: ENOXAPARIN INJ 40 MG/0.4 ML SYR SQ SCH (21:00)
[2021-09-05] MEDS: ACETAMINOPHEN 325 MG TAB PO PRN ×3 (06:50→19:44)
[2021-09-05 07:03] LABS: Basophils # (auto) 0.02 K/uL (0-0.2); Basophils % (auto) 0.2 %; Hemoglobin 15.3 g/dL (14.0-18.0); Immature Granulocytes # (auto) 0.08 K/uL (0.00-0.02); Immature Granulocytes % (auto) 0.7 %; Lymphocytes # (auto) 0.38 K/uL (1.2-3.4); Lymphocytes % (auto) 3.3 %; Mean Corpuscular Hemoglobin 31.4 pg (25-34); Mean Corpuscular Hgb Conc 34.8 g/dL (32-36); Mean Corpuscular Volume 90.2 fL (80-100); Mean Platelet Volume 9.8 fL (7.4-10.4); Monocytes # (auto) 0.34 K/uL (0.11-0.59); Neutrophils # (auto) 10.53 K/uL (1.4-6.5); Neutrophils % (auto) 92.8 %; Platelet Count 146 K/uL (130-400); RDW Coefficient of Variation 14.2 % (11.5-14.5); RDW Standard Deviation 47.2 fL (36.4-46.3); Red Blood Count 4.88 M/uL (4.7-6.1); White Blood Count 11.35 K/uL (4.8-10.8)
[2021-09-05] MEDS: PANTOprazole 40 MG TAB PO SCH (08:31)
[2021-09-05] MEDS: dexAMETHasone 6 MG in SYRINGE 0 ML IV SCH (08:32)
[2021-09-05] MEDS: ENOXAPARIN INJ 40 MG/0.4 ML SYR SQ SCH ×2 (08:34→20:11)
[2021-09-05 08:43] LABS: BUN Creatinine Ratio 30.5 (10-20); C Reactive Protein 5.14 mg/dl (0-0.29); Calcium 9.3 mg/dl (8.5-10.1); Creatinine Clr Calc Pharmacy 109.3 ml/min; Est GFR (African American) 116.8 ml/min; Est GFR (Non-African American) 100.8 ml/min; Potassium 3.8 mmol/L (3.5-5.1)
[2021-09-05] MEDS: BENZONATATE 100 MG CAPSULE PO PRN (19:43)
--- NOTE | 2021-09-05 20:18 | Hospitalist Progress Note ---
Date of Service September 05, 2021 Assessment & Plan (1) Acute respiratory failure with hypoxia: Plan: Acute hypoxic respiratory failure 2/2 COVID-19 pneumonia, he was about day 12 into illness on admission CXR with patchy infiltrates in bases lungs clear Patient is now in PCU. Patient is on high flow with 30 L/MIN. He was on 35L/M in the AM dexamethasone 6mg IV daily, day 4 no role for Remdesivir or baricitinib at this time, CRP: IS AT 5.1 Down from 6 Continue lasix to maintain negative fluid balance. educated on importance of being prone as much as possible incentive spirometer q1H, minimal cough, no sputum so doubt flutter valve would be helpful (2) COVID-19: Plan: about day 12 of illness on admission which fits with typical onset of pneumonia dexamethasone 6mg IV daily Lasix 20mg IV daily to keep lungs dry he is not vaccinated (3) Cough: Plan: - Tessalon PRN, cough is not too bad if it gets more troublesome then try Codeine (4) Thrombocytopenia: Plan: Patient is having thrombocytopenia. Likely from viral suppression. Platelet count has been improving. will reorder lovenox. Plan: DVT PPx: COVID Lovenox Diet: Regular Dispo: Med/Surg CODE STATUS: FULL CODE Admission and Anticipated Discharge Date Admission Date: September 02, 2021 Subjective 55 yo male reports feeling much more comfortable on high flow o2. Patient reports he does not want to be on BIPAP. Review of Systems Review of Systems: All systems reviewed & are unremarkable except as noted in HPI & below Physical Exam Physical Exam: General: well developed, well nourished, middle aged male, no acute distress Neck: supple, trachea midline, normal thyroid Lungs: clear to auscultation bilaterally, no accessory muscle use, no distress Heart: regular S1 and S2, no murmur, peripheral pulses normal, capillary refill normal, no edema Abdomen: soft, NT, ND, + BS, no hepatomegaly, normal to percussion Extremities: normal in appearance, no cyanosis, no petechiae, strength is 5/5 bilaterally Neuro: awake, cooperative, moves all extremities, no focal motor deficits, CN II-XII intact, sensation in extremities intact, normal speech Skin: warm, dry, no rash, normal turgor Psych: Awake, alert oriented x 3, euthymic affect Results & Data Results & Data ([facility]) Vital Signs (Past 12 Hours) Vital Signs Temp Pulse Pulse Resp BP BP Pulse Ox 09/05/21 19:32 36.9 C 95 H 24 110/88 90 09/05/21 15:39 37.1 C 70 18 100/78 93 09/05/21 14:31 81 22 94 09/05/21 11:06 36.7 C 72 18 116/68 90 09/05/21 10:50 79 20 96 09/05/21 08:56 85 09/05/21 08:28 36.9 C 95 H 22 120/85 91 PG Care Time/CCT Total # of Minutes Spent Total Time Spent with Patient: Total time spent is greater than 50% in coordination of care (as documented) at patient's floor/unit and/or counseling patient: Coding Level of Care Code 34290 Subseq Hosp Care Lvl 3 Diagnoses Acute respiratory failure with hypoxia J96.01 COVID-19 U07.1 Cough R05 Thrombocytopenia D69.6
[2021-09-06] MEDS: ACETAMINOPHEN 325 MG TAB PO PRN ×3 (06:25→20:54)
[2021-09-06 07:12] LABS: Hematocrit (blood only) 41.1 % (42-52); Hemoglobin 14.3 g/dL (14.0-18.0); Mean Corpuscular Hgb Conc 34.8 g/dL (32-36); Mean Platelet Volume 9.8 fL (7.4-10.4); Platelet Count 145 K/uL (130-400); RDW Coefficient of Variation 13.8 % (11.5-14.5); RDW Standard Deviation 45.2 fL (36.4-46.3); Red Blood Count 4.62 M/uL (4.7-6.1); White Blood Count 8.28 K/uL (4.8-10.8)
[2021-09-06 07:43] LABS: C Reactive Protein 2.21 mg/dl (0-0.29); Calcium 8.9 mg/dl (8.5-10.1); Creatinine Clr Calc Pharmacy 94.6 ml/min; Est GFR (African American) 107.5 ml/min; Est GFR (Non-African American) 92.7 ml/min; Potassium 3.6 mmol/L (3.5-5.1)
[2021-09-06] MEDS: dexAMETHasone 6 MG in SYRINGE 0 ML IV SCH (08:30)
[2021-09-06] MEDS: ENOXAPARIN INJ 40 MG/0.4 ML SYR SQ SCH ×2 (08:30→20:54)
[2021-09-06] MEDS: PANTOprazole 40 MG TAB PO SCH (08:30)
[2021-09-06] MEDS: BENZONATATE 100 MG CAPSULE PO PRN (15:38)
--- NOTE | 2021-09-06 22:10 | Hospitalist Progress Note ---
Date of Service September 06, 2021 Assessment & Plan (1) Acute respiratory failure with hypoxia: Plan: Acute hypoxic respiratory failure 2/2 COVID-19 pneumonia, he was about day 12 into illness on admission CXR with patchy infiltrates in bases lungs clear Patient is now in PCU. Patient is on high flow with 30 L/MIN. dexamethasone 6mg IV daily, day 5 no role for Remdesivir or baricitinib at this time, CRP: IS AT 2 Down from 6 Continue lasix to maintain negative fluid balance. educated on importance of being prone as much as possible incentive spirometer q1H, minimal cough, no sputum so doubt flutter valve would be helpful (2) COVID-19: Plan: about day 12 of illness on admission which fits with typical onset of pneumonia dexamethasone 6mg IV daily Lasix 20mg IV daily to keep lungs dry he is not vaccinated (3) Cough: Plan: - Tessalon PRN, cough is not too bad if it gets more troublesome then try Codeine (4) Thrombocytopenia: Plan: Patient is having thrombocytopenia. Likely from viral suppression. Platelet count has been improving. will reorder lovenox. Plan: DVT PPx: COVID Lovenox Diet: Regular Dispo: Med/Surg CODE STATUS: FULL CODE Admission and Anticipated Discharge Date Admission Date: September 02, 2021 Subjective Patient reports feeling comfortable. He reports he had a good nights sleep last night. Review of Systems Review of Systems: All systems reviewed & are unremarkable except as noted in HPI & below Physical Exam Physical Exam: General: well developed, well nourished, middle aged male, no acute distress on high flow Neck: supple, trachea midline, normal thyroid Lungs: clear to auscultation bilaterally, no accessory muscle use, no distress Heart: regular S1 and S2, no murmur, peripheral pulses normal, capillary refill normal, no edema Abdomen: soft, NT, ND, + BS, no hepatomegaly, normal to percussion Extremities: normal in appearance, no cyanosis, no petechiae, strength is 5/5 bilaterally Neuro: awake, cooperative, moves all extremities, no focal motor deficits, CN II-XII intact, sensation in extremities intact, normal speech Skin: warm, dry, no rash, normal turgor Psych: Awake, alert oriented x 3, euthymic affect Results & Data Results & Data ([facility]) Vital Signs (Past 12 Hours) Vital Signs Temp Pulse Pulse Resp BP BP Pulse Ox 09/06/21 20:19 76 20 92 09/06/21 19:39 36.7 C 62 15 106/67 95 09/06/21 15:31 36.8 C 88 24 113/88 92 09/06/21 15:26 87 22 90 09/06/21 15:00 94 H 09/06/21 11:08 98 H 24 92 09/06/21 11:00 36.4 C L 87 20 119/78 91 PG Care Time/CCT Total # of Minutes Spent Total Time Spent with Patient: Total time spent is greater than 50% in coordination of care (as documented) at patient's floor/unit and/or counseling patient: Coding Level of Care Code 30328 Subseq Hosp Care Lvl 2 Diagnoses Acute respiratory failure with hypoxia J96.01 COVID-19 U07.1 Cough R05 Thrombocytopenia D69.6
[2021-09-07] MEDS: ACETAMINOPHEN 325 MG TAB PO PRN ×2 (06:28→20:39)
[2021-09-07] MEDS: BENZONATATE 100 MG CAPSULE PO PRN (06:28)
[2021-09-07] MEDS: ENOXAPARIN INJ 40 MG/0.4 ML SYR SQ SCH ×2 (09:45→20:39)
[2021-09-07] MEDS: dexAMETHasone 6 MG in SYRINGE 0 ML IV SCH (09:45)
[2021-09-07] MEDS: PANTOprazole 40 MG TAB PO SCH (09:46)
--- NOTE | 2021-09-07 21:31 | Hospitalist Progress Note ---
Date of Service September 07, 2021 Assessment & Plan (1) Acute respiratory failure with hypoxia: Plan: Acute hypoxic respiratory failure 2/2 COVID-19 pneumonia, he was about day 12 into illness on admission CXR with patchy infiltrates in bases lungs clear Patient is now in PCU. Patient is on high flow with 30 L/MIN. dexamethasone 6mg IV daily, day 6 no role for Remdesivir or baricitinib at this time, CRP: IS AT 2 Down from 6 will repeat blood work tomorrow. Continue lasix to maintain negative fluid balance. educated on importance of being prone as much as possible incentive spirometer q1H, minimal cough, no sputum so doubt flutter valve would be helpful (2) COVID-19: Plan: about day 12 of illness on admission which fits with typical onset of pneumonia dexamethasone 6mg IV daily Lasix 20mg IV daily to keep lungs dry he is not vaccinated (3) Cough: Plan: - Tessalon PRN, cough is not too bad if it gets more troublesome then try Codeine (4) Thrombocytopenia: Plan: Patient is having thrombocytopenia. Likely from viral suppression. Platelet count has been improving. will reorder lovenox. Plan: DVT PPx: COVID Lovenox Diet: Regular Dispo: Med/Surg CODE STATUS: FULL CODE Admission and Anticipated Discharge Date Admission Date: September 02, 2021 Subjective 55 yo male reports feeling better. He has no new complaints. Review of Systems Review of Systems: All systems reviewed & are unremarkable except as noted in HPI & below Physical Exam Physical Exam: General: well developed, well nourished, middle aged male, no acute distress on high flow Neck: supple, trachea midline, normal thyroid Lungs: clear to auscultation bilaterally, no accessory muscle use, no distress Heart: regular S1 and S2, no murmur, peripheral pulses normal, capillary refill normal, no edema Abdomen: soft, NT, ND, + BS, no hepatomegaly, normal to percussion Extremities: normal in appearance, no cyanosis, no petechiae, strength is 5/5 bilaterally Neuro: awake, cooperative, moves all extremities, no focal motor deficits, CN II-XII intact, sensation in extremities intact, normal speech Skin: warm, dry, no rash, normal turgor Psych: Awake, alert oriented x 3, euthymic affect Results & Data Results & Data ([facility]) Vital Signs (Past 12 Hours) Vital Signs Temp Pulse Resp BP BP Pulse Ox 09/07/21 19:35 36.9 C 72 16 124/94 95 09/07/21 18:28 96 H 22 94 09/07/21 15:51 92 H 22 93 09/07/21 15:27 36.6 C 94 H 19 120/90 89 L 09/07/21 11:28 36.9 C 90 21 114/86 90 09/07/21 11:06 85 22 92 PG Care Time/CCT Total # of Minutes Spent Total Time Spent with Patient: Total time spent is greater than 50% in coordination of care (as documented) at patient's floor/unit and/or counseling patient: Coding Level of Care Code 15952 Subseq Hosp Care Lvl 2 Diagnoses Acute respiratory failure with hypoxia J96.01 COVID-19 U07.1 Cough R05 Thrombocytopenia D69.6
[2021-09-08] MEDS: BENZONATATE 100 MG CAPSULE PO PRN (07:35)
[2021-09-08] MEDS: ACETAMINOPHEN 325 MG TAB PO PRN ×3 (07:36→19:36)
[2021-09-08 07:40] LABS: Hematocrit (blood only) 41.3 % (42-52); Hemoglobin 14.5 g/dL (14.0-18.0); Mean Corpuscular Hemoglobin 30.9 pg (25-34); Mean Corpuscular Hgb Conc 35.1 g/dL (32-36); Mean Corpuscular Volume 87.9 fL (80-100); Mean Platelet Volume 10.5 fL (7.4-10.4); Platelet Count 148 K/uL (130-400); RDW Coefficient of Variation 13.3 % (11.5-14.5); RDW Standard Deviation 42.9 fL (36.4-46.3); White Blood Count 7.25 K/uL (4.8-10.8)
[2021-09-08 08:24] LABS: BUN Creatinine Ratio 18.6 (10-20); C Reactive Protein 0.68 mg/dl (0-0.29); Calcium 8.9 mg/dl (8.5-10.1); Creatinine Clr Calc Pharmacy 110.4 ml/min; Est GFR (African American) 117.4 ml/min; Est GFR (Non-African American) 101.3 ml/min; Potassium 3.8 mmol/L (3.5-5.1)
[2021-09-08] MEDS: dexAMETHasone 6 MG in SYRINGE 0 ML IV SCH (09:06)
[2021-09-08] MEDS: PANTOprazole 40 MG TAB PO SCH (09:07)
[2021-09-08] MEDS: ENOXAPARIN INJ 40 MG/0.4 ML SYR SQ SCH ×2 (09:07→19:35)
--- NOTE | 2021-09-08 20:47 | Hospitalist Progress Note ---
Date of Service September 08, 2021 Assessment & Plan (1) Acute respiratory failure with hypoxia: Plan: Acute hypoxic respiratory failure 2/2 COVID-19 pneumonia, he was about day 12 into illness on admission CXR with patchy infiltrates in bases lungs clear Patient is now in PCU. Patient is now on nasal cannula 10L/min dexamethasone 6mg IV daily, day 7 no role for Remdesivir or baricitinib at this time, CRP: IS AT 2 Down from 6 will repeat blood work tomorrow. Continue lasix to maintain negative fluid balance. educated on importance of being prone as much as possible incentive spirometer q1H, minimal cough, no sputum so doubt flutter valve would be helpful (2) COVID-19: Plan: about day 12 of illness on admission which fits with typical onset of pneumonia dexamethasone 6mg IV daily Lasix 20mg IV daily to keep lungs dry he is not vaccinated (3) Cough: Plan: - Tessalon PRN, cough is not too bad if it gets more troublesome then try Codeine (4) Thrombocytopenia: Plan: Patient is having thrombocytopenia. Likely from viral suppression. Platelet count has been improving. will reorder lovenox. Plan: DVT PPx: COVID Lovenox Diet: Regular Dispo: Med/Surg CODE STATUS: FULL CODE Admission and Anticipated Discharge Date Admission Date: September 02, 2021 Subjective 55 yo male reports feeling better. Wants to walk in the [place] tomorrow. Review of Systems Review of Systems: All systems reviewed & are unremarkable except as noted in HPI & below Physical Exam Physical Exam: General: well developed, well nourished, middle aged male, no acute distress on high flow Neck: supple, trachea midline, normal thyroid Lungs: clear to auscultation bilaterally, no accessory muscle use, no distress Heart: regular S1 and S2, no murmur, peripheral pulses normal, capillary refill normal, no edema Abdomen: soft, NT, ND, + BS, no hepatomegaly, normal to percussion Extremities: normal in appearance, no cyanosis, no petechiae, strength is 5/5 bilaterally Neuro: awake, cooperative, moves all extremities, no focal motor deficits, CN II-XII intact, sensation in extremities intact, normal speech Skin: warm, dry, no rash, normal turgor Psych: Awake, alert oriented x 3, euthymic affect Results & Data Results & Data ([facility]) Vital Signs (Past 12 Hours) Vital Signs Temp Pulse Resp BP Pulse Ox 09/08/21 20:04 36.7 C 78 27 H 145/92 H 95 09/08/21 15:31 36.5 C 85 18 153/78 H 90 09/08/21 12:13 36.4 C L 83 19 129/84 91 PG Care Time/CCT Total # of Minutes Spent Total Time Spent with Patient: Total time spent is greater than 50% in coordination of care (as documented) at patient's floor/unit and/or counseling patient: Coding Level of Care Code 66309 Subseq Hosp Care Lvl 2 Diagnoses Acute respiratory failure with hypoxia J96.01 COVID-19 U07.1 Cough R05 Thrombocytopenia D69.6
[2021-09-09] MEDS: ACETAMINOPHEN 325 MG TAB PO PRN ×2 (04:34→20:20)
[2021-09-09] MEDS: PANTOprazole 40 MG TAB PO SCH (08:49)
[2021-09-09] MEDS: ENOXAPARIN INJ 40 MG/0.4 ML SYR SQ SCH ×2 (08:49→20:21)
[2021-09-09] MEDS: dexAMETHasone 6 MG in SYRINGE 0 ML IV SCH (08:50)
--- NOTE | 2021-09-09 21:24 | Hospitalist Progress Note ---
Date of Service September 09, 2021 Assessment & Plan (1) Acute respiratory failure with hypoxia: Plan: Acute hypoxic respiratory failure 2/2 COVID-19 pneumonia, he was about day 12 into illness on admission CXR with patchy infiltrates in bases lungs clear Patient will be transferred back to medical. Patient is now on nasal cannula 6L/min dexamethasone 6mg IV daily, day 8 no role for Remdesivir or baricitinib at this time, CRP: IS AT 2 Down from 6 will repeat blood work tomorrow. Continue lasix to maintain negative fluid balance. educated on importance of being prone as much as possible incentive spirometer q1H, minimal cough, no sputum so doubt flutter valve would be helpful (2) COVID-19: Plan: about day 12 of illness on admission which fits with typical onset of pneumonia dexamethasone 6mg IV daily Lasix 20mg IV daily to keep lungs dry he is not vaccinated (3) Cough: Plan: - Tessalon PRN, cough is not too bad if it gets more troublesome then try Codeine (4) Thrombocytopenia: Plan: Patient is having thrombocytopenia. Likely from viral suppression. Platelet count has been improving. will reorder lovenox. Plan: DVT PPx: COVID Lovenox Diet: Regular Dispo: Med/Surg CODE STATUS: FULL CODE Admission and Anticipated Discharge Date Admission Date: September 02, 2021 Subjective Patient reports feeling better. Review of Systems Review of Systems: All systems reviewed & are unremarkable except as noted in HPI & below Physical Exam Physical Exam: General: well developed, well nourished, middle aged male, no acute distress on high flow Neck: supple, trachea midline, normal thyroid Lungs: clear to auscultation bilaterally, no accessory muscle use, no distress Heart: regular S1 and S2, no murmur, peripheral pulses normal, capillary refill normal, no edema Abdomen: soft, NT, ND, + BS, no hepatomegaly, normal to percussion Extremities: normal in appearance, no cyanosis, no petechiae, strength is 5/5 bilaterally Neuro: awake, cooperative, moves all extremities, no focal motor deficits, CN II-XII intact, sensation in extremities intact, normal speech Skin: warm, dry, no rash, normal turgor Psych: Awake, alert oriented x 3, euthymic affect Results & Data Results & Data ([facility] [place]) Vital Signs (Past 12 Hours) Vital Signs Pulse Ox 09/09/21 17:35 94 09/09/21 16:30 94 PG Care Time/CCT Total # of Minutes Spent Total Time Spent with Patient: Total time spent is greater than 50% in coordination of care (as documented) at patient's floor/unit and/or counseling patient: Coding Level of Care Code 35679 Subseq Hosp Care Lvl 2 Diagnoses Acute respiratory failure with hypoxia J96.01 COVID-19 U07.1 Cough R05 Thrombocytopenia D69.6
[2021-09-10] MEDS: BENZONATATE 100 MG CAPSULE PO PRN (00:29)
[2021-09-10] MEDS: dexAMETHasone 6 MG in SYRINGE 0 ML IV SCH (08:07)
[2021-09-10] MEDS: ENOXAPARIN INJ 40 MG/0.4 ML SYR SQ SCH ×2 (08:07→20:30)
[2021-09-10] MEDS: PANTOprazole 40 MG TAB PO SCH (08:07)
[2021-09-10] MEDS: ACETAMINOPHEN 325 MG TAB PO PRN (16:41)
--- NOTE | 2021-09-10 19:53 | Hospitalist Progress Note ---
Date of Service September 10, 2021 Assessment & Plan (1) Acute respiratory failure with hypoxia: Plan: Acute hypoxic respiratory failure 2/2 COVID-19 pneumonia, he was about day 12 into illness on admission CXR with patchy infiltrates in bases lungs clear Patient will be transferred back to medical 09/08 Patient is now on nasal cannula 5-6L/min dexamethasone 6mg IV daily, day 9 no role for Remdesivir or baricitinib at this time, CRP: IS AT 2 Down from 6 Continue lasix to maintain negative fluid balance. Possible discharge in 48 hours if he maintains at 2-3 liters nasal cannula. Patient reports he is interested in getting the Moderna vaccine. (2) COVID-19: Plan: about day 12 of illness on admission which fits with typical onset of pneumonia dexamethasone 6mg IV daily Lasix 20mg IV daily to keep lungs dry he is not vaccinated (3) Cough: Plan: - Tessalon PRN, cough is not too bad if it gets more troublesome then try Codeine (4) Thrombocytopenia: Plan: Patient is having thrombocytopenia. Likely from viral suppression. Platelet count has been improving. will reorder lovenox. Plan: DVT PPx: COVID Lovenox Diet: Regular Dispo: Med/Surg CODE STATUS: FULL CODE Admission and Anticipated Discharge Date Admission Date: September 02, 2021 Subjective 55 yo male is feeling better. He reports he is own to 6 liters. He is interested in getting the Moderna vaccine Review of Systems Review of Systems: All systems reviewed & are unremarkable except as noted in HPI & below Physical Exam Physical Exam: General: well developed, well nourished, middle aged male, no acute distress on high flow Neck: supple, trachea midline, normal thyroid Lungs: clear to auscultation bilaterally, no accessory muscle use, no distress Heart: regular S1 and S2, no murmur, peripheral pulses normal, capillary refill normal, no edema Abdomen: soft, NT, ND, + BS, no hepatomegaly, normal to percussion Extremities: normal in appearance, no cyanosis, no petechiae, strength is 5/5 bilaterally Neuro: awake, cooperative, moves all extremities, no focal motor deficits, CN II-XII intact, sensation in extremities intact, normal speech Skin: warm, dry, no rash, normal turgor Psych: Awake, alert oriented x 3, euthymic affect Results & Data Results & Data ([facility]) Vital Signs (Past 12 Hours) Vital Signs Temp Pulse Pulse Resp BP Pulse Ox 09/10/21 14:57 36.8 C 98 H 16 121/85 93 09/10/21 10:30 18 94 09/10/21 08:12 36.5 C 88 18 124/79 92 PG Care Time/CCT Total # of Minutes Spent Total Time Spent with Patient: Total time spent is greater than 50% in coordination of care (as documented) at patient's floor/unit and/or counseling patient: Coding Level of Care Code 90144 Subseq Hosp Care Lvl 3 Diagnoses Acute respiratory failure with hypoxia J96.01 COVID-19 U07.1 Cough R05 Thrombocytopenia D69.6 Time Spent (min) 35
[2021-09-11 06:37] LABS: Hematocrit (blood only) 40.9 % (42-52); Hemoglobin 14.2 g/dL (14.0-18.0); Mean Corpuscular Hemoglobin 30.7 pg (25-34); Mean Corpuscular Hgb Conc 34.7 g/dL (32-36); Mean Corpuscular Volume 88.3 fL (80-100); Mean Platelet Volume 10.1 fL (7.4-10.4); Platelet Count 212 K/uL (130-400); RDW Coefficient of Variation 13.7 % (11.5-14.5); RDW Standard Deviation 44.2 fL (36.4-46.3); Red Blood Count 4.63 M/uL (4.7-6.1); White Blood Count 9.42 K/uL (4.8-10.8)
[2021-09-11 07:08] LABS: BUN Creatinine Ratio 16.8 (10-20); Calcium 8.4 mg/dl (8.5-10.1); Creatinine Clr Calc Pharmacy 91.4 ml/min; Est GFR (African American) 100.9 ml/min; Est GFR (Non-African American) 87.1 ml/min; Potassium 3.6 mmol/L (3.5-5.1)
[2021-09-11] MEDS: PANTOprazole 40 MG TAB PO SCH (08:42)
[2021-09-11] MEDS: dexAMETHasone 6 MG in SYRINGE 0 ML IV SCH ×2 (08:42→09:45)
[2021-09-11] MEDS: ENOXAPARIN INJ 40 MG/0.4 ML SYR SQ SCH (08:43)
[2021-09-11] MEDS: ACETAMINOPHEN 325 MG TAB PO PRN (08:56)
[2021-09-11] MEDS ORDERED: dexAMETHasone 4 MG TAB PO ONE (09:44)
[2021-09-11] MEDS ORDERED: FUROSEMIDE 20 MG TAB PO STA (09:45)
[2021-09-11] MEDS ORDERED: POTASSIUM CHLORIDE CRTAB 20 MEQ TABCR PO STA (09:45)
--- NOTE | 2021-09-11 10:56 | Discharge Summary ---
Date of Service September 11, 2021 Admission HPI Per Admitting Provider Pt is a 55-year-old male who presents to the emergency department with increasing cough and shortness of breath, known Covid positive with symptom onset approximately 12 days ago. History of childhood asthma and tobacco use, no recent tobacco use and no recent asthma problems. Following his Covid test as outpatient was started on prednisone and azithromycin, reports he still feels his breathing is worsening. SPO2 sat 86% at time of ER provider assessment. +Cough, dry sometimes with white/light yellow sputum. +LH/+Dizzy. Trying ot drink fluids, but si not very hungry. Has had 10lbs of weight loss since bec oming ill. Diarrhea last night, loose, brown. Initially had severe fever, chills, rigors. NO fever chills rigors in last 6 days, just shortness of breath and inability to lay down due to severe SoB. No personal or fhx of heart problems/heart failure/[place]. Was on azithromycin and prednisone. Did not help. [place] for [employer] and was going to get his vaccinations this past Saturday, but got sick before then. Has not had any vaccination. No other medical problems. Childhood asthma, has not used albuterol since a kid. Last 6-7 nights breathing so bad can't breathe or catch his breath. Can't sleep from shortness of breath. Lives along, had been laying on the floor just to catch his breath. Medical History: Reviewed Medications: Reviewed FHX: denies heart disease. Non contributory. Surgical History: Reviewed Allergies: Reviewed Social History: No tobacco product use, rare social alcohol use. No recreational drug use. Code Status: Full Code Principal Diagnosis COVID 19 pneumonia, acute hypoxic respiratory failure Discharge Exam General: well developed, well nourished, middle aged male, no acute distress Neck: supple, trachea midline, normal thyroid Lungs: clear to auscultation bilaterally, normal respiratory effort, no accessory muscle use, no distress Heart: regular S1 and S2, no murmur, peripheral pulses normal, capillary refill normal, no edema Abdomen: soft, NT, ND, + BS, no hepatomegaly, normal to percussion Extremities: normal in appearance, no cyanosis, no petechiae, strength is 5/5 bilaterally Neuro: awake, cooperative, moves all extremities, no focal motor deficits, CN II-XII intact, sensation in extremities intact, normal speech Skin: warm, dry, no rash, normal turgor Psych: Awake, alert oriented x 3, euthymic affect Discharge Data Allergies Allergy/AdvReac Type Severity Reaction Status Date / Time No Known Allergies Allergy Unverified 09/02/21 11:03 Consultations 09/02/21 12:44 ED Decision to Admit Stat Hospital Course (1) Acute respiratory failure with hypoxia: Acute hypoxic respiratory failure 2/2 COVID-19 pneumonia, he was about day 12 into illness on admission CXR with patchy infiltrates in bases lungs clear patient did require high flow briefly, now quickly titrating back to low flow nasal canula this morning he was feeling great on 4L at rest 2 step shows that he was stable on room air at rest and on exertion, no need for home oxygen today dexamethasone 6mg IV daily, day 9, will give one more day tomorrow at home no role for Remdesivir or baricitinib CRP trended down to 2 from 6 give one more dose of Lasix 20mg PO today, no Lasix on discharge he wants to get Moderna vaccine, he would be eligible once fully recovered from illness, perhaps in 2 weeks (2) COVID-19: about day 12 of illness on admission which fits with typical onset of pneumonia dexamethasone 6mg IV daily, completed 9 days, give one more dose tomorrow PO at home he is not vaccinated (3) Cough: - Tessalon PRN, cough is not too bad, nearly resolved (4) Thrombocytopenia: Patient is having thrombocytopenia. Likely from viral suppression. Platelet count has been improving. DVT PPx: COVID Lovenox Diet: Regular Dispo: Med/Surg CODE STATUS: FULL CODE discharge to home Total Time Total Time Spent Total Time Spent (In Minutes): 33 minutes Total Time Includes: Examination of the Patient, Discharge Planning and Medica tion Reconciliation Discharge Plan Discharge Items Patient Disposition: Home - Self-Care Reason For Visit: HYPOXIA,COVID PNA Discharge Diagnosis: COVID 19 pneumonia Acute hypoxic respiratory failure Condition on Discharge: Good Goals: stay well nourished, well hydrated take dexamethasone tomorrow, no doses needed after that Activity: Resume your previous activity Driving/Machine Use: No limitations Weightbearing: Full weightbearing Non-emergency contact: Primary Care Provider Call non-emergency contact if: you have any medication questions and your symptoms worsen Follow-up/Referrals: Swetha Littlejohn CRNP [Primary Care Provider] - (one week) Diet: Regular Addtl Attending Provider Instructions: Medications: - DEXAMETHASONE: 6mg tomorrow morning, no further doses needed after that, completes 10 days COVID 19 pneumonia with acute hypoxic respiratory failure responded well to treatment, down to room air today at rest and on exertion one more day of dexamethasone tomorrow stay well nourished, well hydrated gradually increase activity, although you don't need oxygen you will still feel short of breath, you will have decreased activity tolerance recommend off work until at least next Tuesday 09/18 but you may need to stay off until 09/25, gave you a work excuse follow up with PCP in a week to see how you are doing Pending Studies at Discharge: No Stand-Alone Forms: My [facility], Work/School Release, Smoking Cessation Medications and DC Order Prescriptions: New dexamethasone 4 mg tablet 6 mg PO DAILY 1 Days Qty: 2 RF: 0 Continued albuterol sulfate 90 mcg/actuation HFA aerosol inhaler 2 puff inhalation QID PRN (Reason: shortness of breath or wheezing) Qty: 8.5 RF: 2 naproxen sodium [Aleve] 220 mg Tablet 680 mg PO Q8H PRN (Reason: Pain) RF: 0 Discontinued azithromycin 500 mg tablet 500 mg PO DAILY 5 Days Qty: 5 RF: 0 prednisone 20 mg tablet 20 mg PO .COMPLEX Qty: 18 RF: 0 ibuprofen 600 mg Tablet 600 mg PO Q8H PRN (Reason: Pain) RF: 0 Discharge Orders: Discharge Order (Routine); Ordered 09/11/21 Ordered By: Burt Santos Admission Data Admit Date/Time: 09/02/21 13:17 Attending Provider: Burt Santos Admit Provider: Getachew Coats Primary Care Provider: Swetha Littlejohn Other Providers: Getachew Coats Coding Level of Care Code D/C DAY MANAGEMENT >30 MINS Diagnoses Acute respiratory failure with hypoxia J96.01 COVID-19 U07.1 Cough R05 Thrombocytopenia D69.6
[2021-09-12] MEDS ORDERED: dexAMETHasone 1 MG TAB PO SCH (09:00)
== END 2021-09-11 13:44 | disposition home or self-care (01) | DRG 177 ==
LOC: ED 09:57 → 3W 13:17 → SUATTDRO 13:17 → 3W 14:44 → 2E 09-04 11:54 → 3W 09-09 17:27

== ENCOUNTER 2025-05-16 12:26 | Inpatient (IN) ==
--- NOTE | 2025-05-16 12:40 | Emergency Department Note ---
Impression & Plan Fracture of fourth metatarsal bone of right foot, Knee pain, Ambulatory dysfunction, Abrasion ED Provider Note NAME: FIONA ORDOÑEZ AGE: 59 SEX: M : 1965 ARRIVES VIA: Walk-In INFORMANT: Patient ED PROVIDER(S): Marcos White DO CHIEF COMPLAINT: Fall HPI: Patient is a 59-year-old male who presents to the ER following a fall off a ladder of about 8 feet. He notes the ladder cystolith out from underneath him and he wrote it down. He does not believe he hit his head. He complains of severe left knee pain and right foot and ankle pain. This occurred late last night. Has been unable to walk since then. Denies any blood thinners. No headache or neck pain. No chest pain or shortness of breath but he does admit to to lower left lateral rib. Denies any belly pain. Notes he has been unable to walk due to pain in the right foot and ankle and left knee. ADDITIONAL HISTORY OBTAINED: Per HPI Chronic Medical/Social Conditions Affecting Care: Per HPI PAST MEDICAL HISTORY:See Below PAST SURGICAL HISTORY:See Below FAMILY HISTORY:See Below SOCIAL HISTORY:See Below HOME MEDICATIONS:See Below ALLERGIES:See Below VITALS:See Below PHYSICAL EXAMINATION: Primary Survey Airway: Intact Breathing: Normal, breath sounds equal bilaterally Circulation: Skin warm, distal pulses 2+, capillary refill less than 2 seconds Disability Pupils: Equal and reactive to light GCS: 15, Secondary Survey GENERAL: alert, well appearing, well nourished, no distress, non-toxic HEAD: normal cephalic, atraumatic EYE EXAM: normal conjunctiva, PERRL and EOM's grossly intact OROPHARYNX: no exudate, no erythema, lips, buccal mucosa, and tongue normal and mucous membranes are moist NECK: supple, no nuchal rigidity, no adenopathy, non-tender CHEST: stable to compression anteriorly and posteriorly LUNGS: clear to auscultation. Normal chest wall mechanics HEART: no murmurs, S1 normal and S2 normal ABDOMEN: abdomen soft, non-tender, normo-active bowel sounds, no masses, no rebound or guarding. PELVIS: stable to compression anteriorly and posteriorly BACK: Back is symmetrical on inspection and there is no deformity, no midline tenderness, no CVA tenderness. UPPER EXTREMITIES: full active and passive range of motion of all joints without tenderness to palpation LOWER EXTREMITIES: No tenderness on palpation of proximal left or mid femur. Tenderness and pain over the left knee. Abrasion present. No tenderness at the mid jones or distally. No ankle pain or foot pain. DPs and PTs 2 out of 4 on the left. Right femur without tenderness to palpation. No tenderness throughout the knee proximal tib-fib or mid tib-fib. No pain throughout the ankle but significant pain throughout the arch of the foot from the fifth metatarsal tracking over to the second. Bruising is present. Skin is intact. Plantar and dorsiflexion is intact of both as well as flexion extension hips and knees. NEURO EXAM: Normal sensorium, cranial nerves II-XII grossly intact, normal speech, no gross weakness of arms, no gross weakness of legs. GCS: 15. MEDICAL DECISION MAKING: Patient is a 59-year-old male who fell yesterday and rode a ladder down from 8 feet is having right foot pain and left knee pain. He denies any head strike. No neck pain. IVs were established and blood work was obtained. Labs show no significant leukocytosis or anemia. INR unremarkable. BMP along with LFTs was unremarkable. T. bili at 1.1. X-ray of the ribs, left knee and right foot and right ankle suggest a fourth metatarsal fracture. CT of the knee as patient was having significant mount of pain unable to walk on it shows a hemarthrosis. No obvious fracture. Patient was given IV morphine. Updated bedside. CT head and cervical spine was negative. Discussed case with the hospitalist for further evaluation management and treatment. Discussed with Ortho who recommended walking boot for the right foot. Patient is unable to bear weight and consequently was brought in for PT OT. Consults/Care Managements Discussions: Per [facility] Triage Nursing notes reviewed. Limited review of prior medical records performed Vital Signs: reviewed and remarkable for no significant abnormalities Differential diagnosis: Differential diagnoses include major intracranial, cervical, spinal, thoracic, abdominal, pelvic and neurologic injury. Fracture, contusion, sprain, strain, laceration, abrasions included as well. ER treatment provided: See below Diagnostics interpreted by me include EKG and cardiac monitoring as listed below: -Cardiac Monitoring: An order was placed for continuous cardiac monitoring. The monitor shows a rate of 70 with sinus rhythm. -ECG: Sinus rhythm rate 84 Normal axis No PVCs QTc 456 -Laboratory studies:Interpreted by me as stated above in MDM and shown below. Imaging studies: Xrays: As interpreted by me: X-ray of the right foot shows a fourth metatarsal fracture X-ray of the ankle shows no acute fracture or dislocation X-ray of the ribs and chest showed no obvious pneumo CTs show: CT head and cervical spine was negative Procedures:none Critical Care: None Past Med/Surg History Problem List (Updated 05/16/25 @ 18:02 by Marcos White DO) Abrasion (Acute) Fracture of fourth metatarsal bone of right foot (Acute) Hypertension Ambulatory dysfunction (Acute) Knee pain (Acute) Fall SOB (shortness of breath) Viral URI Hypoxia COVID-19 Medical History No known health problems Thrombocytopenia Dyspnea Acute respiratory failure with hypoxia Cough Surgical History History of hip surgery 1984 Family History Father Prostate cancer Cancer Brother Dementia Denies family history of Ovarian cancer Myocardial infarction Breast cancer Colorectal cancer Social History Smoking Status: Never smoker Tobacco Type: Cigarettes Age Started Using Tobacco: 0; Age Quit Using Tobacco: 0; packs per day: 0; Second Hand Exposure: No; Do You Dip or Chew Tobacco: No; Hx Alcohol Use: Yes Alcohol type: beer Hx Substance Use: No Preferred Language: Nicaraguan Communication Ability: Effective Compliance Auditor Required: No Beliefs That Will Affect Care: None marital status: Current Living Situation: Alone current occupational status: employed current occupation: [employer] How many Children do You have: 1 Feels Safe at Home: Yes Childhood Exposure to Second-Hand Smoke: No Diet: regular caffeine: Yes Dental Care, Regularly: Yes Physical Activity Frequency: Daily Seatbelt Use: sometimes Sunscreen Use: Yes (sometimes) Assistive Devices: None Allergies Allergies Allergy/AdvReac Type Severity Reaction Status Date / Time No Known Allergies Allergy Unverified 03/15/25 09:53 Home Meds Home Medications Medication Instructions Recorded Confirmed naproxen sodium 220 mg tablet 680 mg PO Q8H PRN Pain 09/02/21 03/15/25 (Aleve) Previous Rx's Medication Instructions Recorded omeprazole 20 mg capsule,delayed 20 mg PO DAILY #30 caps 01/05/25 release albuterol sulfate 90 mcg/actuation 2 puff inhalation QID PRN 03/15/25 aerosol inhaler shortness of breath or wheezing #8.5 grams azithromycin 250 mg tablet See Rx Instructions PO .COMPLEX #6 03/15/25 tabs Results & Data (ED) Vital Signs Vital Signs - 24 hr 05/16/25 12:38 05/16/25 12:38 05/16/25 12:42 Temperature 36.8 C 36.8 C Temperature Source Oral Pulse Rate 86 86 83 Pulse Rate [Left Apical] Respiratory Rate 20 20 Respiratory Effort / Characteristics Non-Labored Spontaneous Respiratory Depth Normal Respiratory Pattern Regular Blood Pressure 171/123 H 171/123 H Blood Pressure [Right Arm] Blood Pressure Mean 139 Blood Pressure Mean [Right Arm] Pulse Oximetry 97 Oxygen Delivery Method Room Air Room Air Oxygen Flow Rate 0 Sepsis Recent Fever Within 48 Hours No Sepsis New/Unexplained Change in Mental Status N/A Sepsis Action Taken by Nursing No Action Required 05/16/25 13:12 05/16/25 13:13 05/16/25 13:18 Temperature Temperature Source Pulse Rate 75 Pulse Rate [Left Apical] 71 Respiratory Rate 16 15 Respiratory Effort / Characteristics Non-Labored Spontaneous Respiratory Depth Normal Respiratory Pattern Regular Blood Pressure 139/95 Blood Pressure [Right Arm] 139/95 Blood Pressure Mean 109 Blood Pressure Mean [Right Arm] 109 Pulse Oximetry 93 97 Oxygen Delivery Method Room Air Room Air Room Air Oxygen Flow Rate Sepsis Recent Fever Within 48 Hours Sepsis New/Unexplained Change in Mental Status Sepsis Action Taken by Nursing 05/16/25 14:03 05/16/25 14:58 05/16/25 15:57 Temperature Temperature Source Pulse Rate 68 Pulse Rate [Left Apical] 67 63 Respiratory Rate 15 17 14 Respiratory Effort / Characteristics Non-Labored Spontaneous Non-Labored Spontaneous Respiratory Depth Normal Normal Respiratory Pattern Regular Regular Blood Pressure 145/97 H Blood Pressure [Right Arm] 147/99 H 152/91 H Blood Pressure Mean 113 Blood Pressure Mean [Right Arm] 115 111 Pulse Oximetry 96 95 91 Oxygen Delivery Method Room Air Room Air Room Air Oxygen Flow Rate Sepsis Recent Fever Within 48 Hours Sepsis New/Unexplained Change in Mental Status Sepsis Action Taken by Nursing 05/16/25 16:37 05/16/25 16:39 05/16/25 17:00 Temperature Temperature Source Pulse Rate Pulse Rate [Left Apical] 75 71 71 Respiratory Rate 18 20 20 Respiratory Effort / Characteristics Non-Labored Spontaneous Non-Labored Spontaneous Non-Labored Spontaneous Respiratory Depth Normal Normal Normal Respiratory Pattern Blood Pressure Blood Pressure [Right Arm] 145/99 H 145/99 H 152/110 H Blood Pressure Mean Blood Pressure Mean [Right Arm] 114 114 124 Pulse Oximetry 98 98 96 Oxygen Delivery Method Room Air Room Air Room Air Oxygen Flow Rate Sepsis Recent Fever Within 48 Hours Sepsis New/Unexplained Change in Mental Status Sepsis Action Taken by Nursing 05/16/25 17:05 Temperature Temperature Source Pulse Rate 70 Pulse Rate [Left Apical] Respiratory Rate Respiratory Effort / Characteristics Respiratory Depth Respiratory Pattern Blood Pressure Blood Pressure [Right Arm] Blood Pressure Mean Blood Pressure Mean [Right Arm] Pulse Oximetry Oxygen Delivery Method Oxygen Flow Rate Sepsis Recent Fever Within 48 Hours Sepsis New/Unexplained Change in Mental Status Sepsis Action Taken by Nursing Laboratory Data 05/16/25 12:38 05/16/25 12:38 Lab Results 05/16/25 05/16/25 Range/Units 12:38 12:47 WBC 7.03 (4.8-10.8) K/ul RBC 4.73 (4.70-6.10) M/uL Hgb 14.6 (14.0-18.0) g/dl POC Hgb 14.6 (14.0-18.0) g/dl Hct 41.8 L (42.0-52.0) % POC Hct 43 (42-52) % MCV 88.4 (80.0-100.0) fL MCH 30.9 (25.0-34.0) pg MCHC 34.9 (32.0-36.0) g/dL RDW Std Deviation 44.3 (36.4-46.3) fL RDW Coeff of [place] 13.6 (11.5-14.5) % Plt Count 149 (130-400) K/uL MPV 9.4 (9.4-12.4) fL Immature Gran % (Auto) 0.6 % Neut % (Auto) 66.9 % Lymph % (Auto) 18.9 % [place] % (Auto) 12.4 % Eos % (Auto) 0.6 % Baso % (Auto) 0.6 % Neut # (Auto) 4.71 (1.40-6.50) K/uL Lymph # (Auto) 1.33 (1.20-3.40) K/uL [place] # (Auto) 0.87 H (0.11-0.59) K/uL Eos # (Auto) 0.04 (0.00-0.50) K/uL Baso # (Auto) 0.04 (0.00-0.20) K/uL Immature Gran # (Auto) 0.04 (0.01-0.20) K/uL PT 10.6 (9.0-12.0) Seconds INR 1.0 (0.9-1.1) APTT 26 (21-31) Seconds PTT Ratio 1.0 POC Sodium 141 (135-144) mmol/L Sodium 139 (136-145) mmol/L POC Potassium 3.6 (3.3-5.0) mmol/L Potassium 3.6 (3.5-5.1) mmol/L POC Chloride 106 (101-112) mmol/L Chloride 106 (98-107) mmol/L Carbon Dioxide 25 (21-32) mmol/L POC Total CO2 22 L (24-31) mmol/L Anion Gap 8 (3-11) POC Anion Gap 18.0 (16-25) mmol/L POC BUN 10 (7-18) mg/dl BUN 12 (6-23) mg/dl Creatinine 0.95 (0.6-1.4) mg/dl POC Creatinine 1.0 (0.6-1.3) mg/dl Est Cr Clr Drug Dosing 90.5 ml/min eGFR 92.78 BUN/Creatinine Ratio 12.6 (10-20) Glucose 103 H (70-99(Fasting)) mg/dl POC Glucose (other) 101 H (70-99) mg/dl Calcium 9.4 (8.6-10.3) mg/dl POC Ioniz Calcium Cathi 1.21 (1.12-1.32) mmol/l Total Bilirubin 1.1 H (0.2-1.0) mg/dl AST 14 (13-39) U/L ALT 12 (7-52) U/L Alkaline Phosphatase 91 (34-104) U/L Total Protein 7.8 (6.0-8.3) gm/dl Albumin 4.5 (3.4-5.0) gm/dl Globulin 3.3 (2.5-4.0) gm/dl Albumin/Globulin Ratio 1.4 (0.9-2) Administered Medications Discontinued Medications Diphtheria/Pertussis/Tetanus Vacc (Diphther/Tetan/Pertus Vaccine (Tdap, Adol/Adult) 0.5ml) 0.5 ml IM .ONCE ONE Stop: 05/16/25 12:41 Last Admin: 05/16/25 12:52 Dose: 0.5 ml Documented By: ANABEL Morphine Sulfate (Morphine Sulfate 4 Mg/Ml 1 Ml Carp\Vial) 4 mg IV NOW STA Stop: 05/16/25 12:41 Last Admin: 05/16/25 12:51 Dose: 4 mg Documented By: ANABEL Morphine Sulfate (Morphine Sulfate 4 Mg/Ml 1 Ml Carp\Vial) 4 mg IV NOW STA Stop: 05/16/25 15:23 Last Admin: 05/16/25 15:31 Dose: 4 mg Documented By: ANABEL Ondansetron HCl (Ondansetron Inj 2 Mg/Ml 2 Ml Vial) 4 mg IV NOW STA Stop: 05/16/25 12:41 Last Admin: 05/16/25 12:51 Dose: 4 mg Documented By: ANABEL Imaging Data Radiologist's Impression: Ankle X-Ray 05/16/25 12:35 EXAMINATION: X-ray ankle right minimum 3 view routine CLINICAL HISTORY: Fell off roof last night right foot pain PRIORS: None TECHNIQUE: AP, AP oblique and lateral view. FINDINGS: Bone stock and alignment is normal. No acute fracture or dislocation. Ankle mortise is preserved. No joint space narrowing, erosion or osteophyte. mild soft tissue swelling about the ankle noted. IMPRESSION: No plain film evidence of an acute osseous abnormality or degenerative change. Electronically signed by Ana M Reis 05-16-2025 2:26 PM Foot X-Ray 05/16/25 12:35 EXAM: Radiographs of the Right Foot Complete 3 or More Views INDICATION: Trauma. TECHNIQUE: Frontal, lateral and oblique views of the right foot. Images obtained at 1:25 PM. COMPARISON: No relevant prior studies available. FINDINGS: Bones/joints: There is an acute minimally impacted and displaced fracture of the distal head of the fourth metatarsal. There is old fracture of the distal head of the third metatarsal. Soft tissues: Mild generalized soft tissue swelling noted. No soft tissue gas or radiopaque foreign body noted. IMPRESSION: Acute minimally displaced and impacted fracture of the distal head of the fourth metatarsal. ACT 112: N/A Electronically signed by Loren Toney 05-16-2025 2:39 PM Knee X-Ray 05/16/25 12:35 EXAM: Radiographs of the Left Knee 3 Views INDICATION: Trauma TECHNIQUE: Three views of the left knee. Images obtained at 1:30 PM COMPARISON: No relevant prior studies available. FINDINGS: Bones/joints: There is a joint effusion. There is no visible fracture. Smooth articular surfaces. No erosion. Soft tissues: There is soft tissue swelling medial to the distal femur. 3 mm well-corticated ossicle noted along the lateral margin of the swollen area appears chronic. IMPRESSION: Joint effusion and medial soft tissue swelling without evident fracture. Consider ligamentous injury. ACT 112: N/A Electronically signed by Loren Toney 05-16-2025 2:40 PM Ribs w/Chest X-Ray 05/16/25 12:35 EXAM: Radiographs of the Left Ribs and AP Chest There Views INDICATION: Fell off a roof last night. Pain. TECHNIQUE: Frontal and oblique views of the left ribs and frontal view of the chest. COMPARISON: No relevant prior studies available. FINDINGS: Lungs and pleural spaces: No consolidation or pulmonary edema. No pleural effusion or pneumothorax. Heart: No abnormality noted. No cardiomegaly. Mediastinum: Normal contour. Bones/joints: No fracture, erosion or dislocation. IMPRESSION: No abnormality noted. ACT 112: N/A Electronically signed by Loren Toney 05-16-2025 2:[address] 05/16/25 12:37 EXAM: CT Cervical Spine Without Intravenous Contrast INDICATION: Trauma TECHNIQUE: Axial computed tomography images of the cervical spine without intravenous contrast. Sagittal and coronal reformatted images were created and reviewed. This CT exam was performed using one or more of the following dose reduction techniques: automated exposure control, adjustment of the mA and/or kV according to patient size, and/or use of iterative reconstruction technique. COMPARISON: No relevant prior studies available. FINDINGS: Limitations: None. Vertebrae: The bones are demineralized. Minimal multilevel spondylosis. No fracture or subluxation. Discs/spinal canal/neural foramina: No significant disc space abnormality or stenosis. Soft tissues: No significant abnormality noted. Vasculature: Atherosclerosis of the cervical carotid arteries. Lung apices: No significant abnormality noted. IMPRESSION: No acute abnormality of the cervical spine. ACT 112: N/A Electronically signed by Loren Toney 05-16-2025 13:[address] 05/16/25 12:37 EXAM: CT Head Without Intravenous Contrast INDICATION: Trauma TECHNIQUE: Axial computed tomography images of the head/brain without intravenous contrast. Sagittal and/or coronal reformats are provided. Sagittal and coronal reformatted images were created and reviewed. This CT exam was performed using one or more of the following dose reduction techniques: automated exposure control, adjustment of the mA and/or kV according to patient size, and/or use of iterative reconstruction technique. COMPARISON: 11/18/2020 FINDINGS: Limitations: None. Brain and extra-axial spaces: There is age appropriate cortical atrophy and chronic ischemic periventricular white matter hypodensity. No acute infarct, hemorrhage or mass noted. Bones/joints: No acute changes. Soft tissues: No significant abnormality noted. Vasculature: No acute abnormality noted. Sinuses: No layering fluid in the visualized portions of the paranasal sinuses. Mastoid air cells: No mastoid effusion. Orbits: No significant abnormality noted. IMPRESSION: Cerebral atrophy. No acute changes. ACT 112: N/A Electronically signed by Loren Toney 05-16-2025 13:[address] 05/16/25 14:44 EXAMINATION: CT knee left without contrast CLINICAL HISTORY: Trauma, pain PRIORS: Plain film 05/16/2025 TECHNIQUE: Contiguous axial images were obtained through the left knee without the use of intravenous contrast. Sagittal coronal reformations are supplied. Bone windows are supplied. FINDINGS: Mild osseous demineralization noted. No acute displaced or depressed fracture or dislocation. Very mild medial compartment joint space narrowing with peaking of the tibial spines noted. A large suprapatella joint effusion is noted without lipohemarthrosis. Very mild patella tilt and subluxation, allowing for large joint effusion. No avulsion fracture of the patella. No patella alto or [place]. Moderate prepatellar soft tissue swelling noted. Moderate lateral knee soft tissue swelling also noted. Muscle bulk is normal. Atherosclerotic disease of the popliteal artery present. No subcutaneous gas or radiopaque foreign body. Visualized patella tendon and Hoffa's fat pad within normal limits. No full-thickness tear of the quadriceps insertion onto the patella. The posterior cruciate ligament is identified throughout its course, allowing for CT technique. ACL not well visualized with CT. IMPRESSION: 1. Large suprapatella joint effusion with no acute fracture or dislocation. 2. Mild to moderate prepatellar and lateral knee soft tissue swelling. ACT 112: Positive. There are findings on this examination that require communication between the performing entity and the patient following Patient Test Result Information Act ([place] ACT 112) guidelines. Electronically signed by Ana M Reis 05-16-2025 3:43 PM Discharge Plan Visit Data Chief Complaint: Trauma Stated Complaint: FALL OFF A LADDER BOTH LEGS HURT ED Provider: Marcos White Discharge Problem: Fracture of fourth metatarsal bone of right foot, Knee pain, Ambulatory dysfunction, Abrasion Condition: Fair Forms Stand Alone Forms: [employer] Prescriptions Prescriptions: No Action omeprazole 20 mg capsule,delayed release(DR/EC) 20 mg PO DAILY Qty: 30 11RF albuterol sulfate 90 mcg/actuation HFA aerosol inhaler 2 puff inhalation QID PRN (Reason: shortness of breath or wheezing) Qty: 8.5 0RF azithromycin 250 mg tablet See Rx Instructions PO .COMPLEX Qty: 6 0RF Rx Instructions: For 250 mg dose pack: take 500 mg today (day 1), then 250 mg for 4 days (days 2-5) PO naproxen sodium [Aleve] 220 mg Tablet 680 mg PO Q8H PRN (Reason: Pain) Referrals Referrals: Swetha Littlejohn CRNP [Primary Care Provider] - Discharge Problem: Fracture of fourth metatarsal bone of right foot Qualifiers: Encounter type: initial encounter Fracture type: closed Physeal involvement: u nspecified Qualified Code(s): S92.341A - Displaced fracture of fourth metatarsal bone, right foot, initial encounter for closed fracture Knee pain Qualifiers: Chronicity: acute Laterality: left Qualified Code(s): M25.562 - Pain in left knee
[2025-05-16] MEDS: ONDANSETRON INJ 2 MG/ML 2 ML VIAL IV STA (12:51)
[2025-05-16] MEDS: MoRPHine SULFATE 4 MG/ML 1 ML CARP\\VIAL IV STA ×2 (12:51→15:31)
[2025-05-16 12:52] LABS: Hematocrit (blood only) 41.8 % (42.0-52.0); Hemoglobin 14.6 g/dl (14.0-18.0); Immature Granulocytes # (auto) 0.04 K/uL (0.01-0.20); Immature Granulocytes % (auto) 0.6 %; Mean Corpuscular Hemoglobin 30.9 pg (25.0-34.0); Mean Corpuscular Volume 88.4 fL (80.0-100.0); Platelet Count 149 K/uL (130-400); RDW Standard Deviation 44.3 fL (36.4-46.3); Red Blood Count 4.73 M/uL (4.70-6.10); White Blood Count 7.03 K/ul (4.8-10.8)
[2025-05-16] MEDS: DIPHTHER/TETAN/PERTUS Vaccine (Tdap, Adol/Adult) 0.5mL IM ONE (12:52)
[2025-05-16 13:08] LABS: Alanine Aminotransferase 12.0 U/L (7-52); Albumin Globulin Ratio 1.4 (0.9-2); Alkaline Phosphatase 91.0 U/L (34-104); Anion Gap 8.0 (3-11); Bilirubin,Total 1.1 mg/dl (0.2-1.0); Blood Urea Nitrogen 12.0 mg/dl (6-23); Calcium 9.4 mg/dl (8.6-10.3); Carbon Dioxide 25.0 mmol/L (21-32); Chloride 106.0 mmol/L (98-107); Creatinine Clr Calc Pharmacy 90.5 ml/min; Globulin 3.3 gm/dl (2.5-4.0); Glucose 103.0 mg/dl (70-99(Fasting)); Potassium 3.6 mmol/L (3.5-5.1); Sodium 139.0 mmol/L (136-145); Total Protein 7.8 gm/dl (6.0-8.3)
[2025-05-16 13:20] LABS: INR 1.0 (0.9-1.1); Partial Thromboplastin Time 26 Seconds (21-31); Prothrombin Time 10.6 Seconds (9.0-12.0)
--- NOTE | 2025-05-16 13:56 | CT Scan Report ---
EXAM: CT Cervical Spine Without Intravenous Contrast INDICATION: Trauma TECHNIQUE: Axial computed tomography images of the cervical spine without intravenous contrast. Sagittal and coronal reformatted images were created and reviewed. This CT exam was performed using one or more of the following dose reduction techniques: automated exposure control, adjustment of the mA and/or kV according to patient size, and/or use of iterative reconstruction technique. COMPARISON: No relevant prior studies available. FINDINGS: Limitations: None. Vertebrae: The bones are demineralized. Minimal multilevel spondylosis. No fracture or subluxation. Discs/spinal canal/neural foramina: No significant disc space abnormality or stenosis. Soft tissues: No significant abnormality noted. Vasculature: Atherosclerosis of the cervical carotid arteries. Lung apices: No significant abnormality noted. IMPRESSION: No acute abnormality of the cervical spine. ACT 112: N/A Electronically signed by Loren Toney 05-16-2025 13:56 PM
--- NOTE | 2025-05-16 13:57 | CT Scan Report ---
EXAM: CT Head Without Intravenous Contrast INDICATION: Trauma TECHNIQUE: Axial computed tomography images of the head/brain without intravenous contrast. Sagittal and/or coronal reformats are provided. Sagittal and coronal reformatted images were created and reviewed. This CT exam was performed using one or more of the following dose reduction techniques: automated exposure control, adjustment of the mA and/or kV according to patient size, and/or use of iterative reconstruction technique. COMPARISON: 11/18/2020 FINDINGS: Limitations: None. Brain and extra-axial spaces: There is age appropriate cortical atrophy and chronic ischemic periventricular white matter hypodensity. No acute infarct, hemorrhage or mass noted. Bones/joints: No acute changes. Soft tissues: No significant abnormality noted. Vasculature: No acute abnormality noted. Sinuses: No layering fluid in the visualized portions of the paranasal sinuses. Mastoid air cells: No mastoid effusion. Orbits: No significant abnormality noted. IMPRESSION: Cerebral atrophy. No acute changes. ACT 112: N/A Electronically signed by Loren Toney 05-16-2025 13:57 PM
--- NOTE | 2025-05-16 14:27 | XRay Report ---
EXAMINATION: X-ray ankle right minimum 3 view routine CLINICAL HISTORY: Fell off roof last night right foot pain PRIORS: None TECHNIQUE: AP, AP oblique and lateral view. FINDINGS: Bone stock and alignment is normal. No acute fracture or dislocation. Ankle mortise is preserved. No joint space narrowing, erosion or osteophyte. mild soft tissue swelling about the ankle noted. IMPRESSION: No plain film evidence of an acute osseous abnormality or degenerative change. Electronically signed by Ana M Reis 05-16-2025 2:26 PM
--- NOTE | 2025-05-16 14:37 | XRay Report ---
EXAM: Radiographs of the Left Ribs and AP Chest There Views INDICATION: Fell off a roof last night. Pain. TECHNIQUE: Frontal and oblique views of the left ribs and frontal view of the chest. COMPARISON: No relevant prior studies available. FINDINGS: Lungs and pleural spaces: No consolidation or pulmonary edema. No pleural effusion or pneumothorax. Heart: No abnormality noted. No cardiomegaly. Mediastinum: Normal contour. Bones/joints: No fracture, erosion or dislocation. IMPRESSION: No abnormality noted. ACT 112: N/A Electronically signed by Loren Toney 05-16-2025 2:36 PM
--- NOTE | 2025-05-16 14:39 | XRay Report ---
EXAM: Radiographs of the Right Foot Complete 3 or More Views INDICATION: Trauma. TECHNIQUE: Frontal, lateral and oblique views of the right foot. Images obtained at 1:25 PM. COMPARISON: No relevant prior studies available. FINDINGS: Bones/joints: There is an acute minimally impacted and displaced fracture of the distal head of the fourth metatarsal. There is old fracture of the distal head of the third metatarsal. Soft tissues: Mild generalized soft tissue swelling noted. No soft tissue gas or radiopaque foreign body noted. IMPRESSION: Acute minimally displaced and impacted fracture of the distal head of the fourth metatarsal. ACT 112: N/A Electronically signed by Loren Toney 05-16-2025 2:39 PM
--- NOTE | 2025-05-16 14:40 | XRay Report ---
EXAM: Radiographs of the Left Knee 3 Views INDICATION: Trauma TECHNIQUE: Three views of the left knee. Images obtained at 1:30 PM COMPARISON: No relevant prior studies available. FINDINGS: Bones/joints: There is a joint effusion. There is no visible fracture. Smooth articular surfaces. No erosion. Soft tissues: There is soft tissue swelling medial to the distal femur. 3 mm well-corticated ossicle noted along the lateral margin of the swollen area appears chronic. IMPRESSION: Joint effusion and medial soft tissue swelling without evident fracture. Consider ligamentous injury. ACT 112: N/A Electronically signed by Loren Toney 05-16-2025 2:40 PM
--- NOTE | 2025-05-16 15:43 | CT Scan Report ---
EXAMINATION: CT knee left without contrast CLINICAL HISTORY: Trauma, pain PRIORS: Plain film 05/16/2025 TECHNIQUE: Contiguous axial images were obtained through the left knee without the use of intravenous contrast. Sagittal coronal reformations are supplied. Bone windows are supplied. FINDINGS: Mild osseous demineralization noted. No acute displaced or depressed fracture or dislocation. Very mild medial compartment joint space narrowing with peaking of the tibial spines noted. A large suprapatella joint effusion is noted without lipohemarthrosis. Very mild patella tilt and subluxation, allowing for large joint effusion. No avulsion fracture of the patella. No patella alto or [place]. Moderate prepatellar soft tissue swelling noted. Moderate lateral knee soft tissue swelling also noted. Muscle bulk is normal. Atherosclerotic disease of the popliteal artery present. No subcutaneous gas or radiopaque foreign body. Visualized patella tendon and Hoffa's fat pad within normal limits. No full-thickness tear of the quadriceps insertion onto the patella. The posterior cruciate ligament is identified throughout its course, allowing for CT technique. ACL not well visualized with CT. IMPRESSION: 1. Large suprapatella joint effusion with no acute fracture or dislocation. 2. Mild to moderate prepatellar and lateral knee soft tissue swelling. ACT 112: Positive. There are findings on this examination that require communication between the performing entity and the patient following Patient Test Result Information Act ([place] ACT 112) guidelines. Electronically signed by Ana M Reis 05-16-2025 3:43 PM
--- NOTE | 2025-05-16 16:41 | History & Physical Report ---
Date of Service May 16, 2025 Assessment & Plan (1) Fall: (2) Knee pain: (3) Ambulatory dysfunction: (4) Hypertension: Plan 59yo male presented for difficulty ambulating after falling off ladder last evening. CT head negative, notes cerebral atrophy. CT cervical spine negative. #Fall from ladder #Ambulatory Dysfunction #LEFT knee pain, knee effusion [facility] imaging noting large supra-patella joint effusion without acute fracture or dislocation. Mild-moderate prepatellar and lateral knee soft tissue swelling. Not able to go home due to swelling/ambulatory dysfunction and large effusion Admit to medical but w/ telemetry given trauma however appears mechanical Orthopedics consulted to see if ?aspiration effusion to allow for improvement in pain control --> obtaining MRI for further evaluation, ?torn ACL vs other Pain control: tylenol 1gm q8h, oxycodone q4h prn, toradol IV prn with morphine for breakthrough Bowel regimen to prevent constipation with colace BID, miralax daily DVT proph: SCDs for now, add chemoproph pending inpatient course PT/OT consulted Fall precautions Monitor exam/labs in AM #Metatarsal fracture - right foot. 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 NOT on BP medication. Will monitor/hydralazine if needed if pain controlled. Likely benefit from addition of anti-HTN agent pending serial measurements #Elevated cholesterol - again, not on medications however review Cholesterol 215 in March with LDL 156 and SHOULD be on statin therapy. Rec follow up discussion with patient in AM but also should follow up with PCP as outpatient. Could consider starting at dc if agreeable Will also add A1c for risk stratification to AM labs Dispo; admission for pain control/ortho consult and MRI. therapy evals discussed w/ Dr Morillo History of Present Illness Chief Complaint: trauma, fall off ladder Primary Care Provider: ANA Kuo 59yo male presented for difficulty ambulating after falling off ladder last evening. No LOC/dizziness, the ladder came out from under and he slid down with it. CT head negative, notes cerebral atrophy. CT cervical spine negative. Not on any blood thinners, occasional NSAID for joint pain if needed. Had been trying to recover at home with ice and had been walking last evening but reports overnight was unable to stand up/put weight on it. Imaging noting large suprapatellar joint effusion without acute fracture or dislocation. Mild-moderate prepatellar and lateral knee soft tissue swelling. Pain currently controlled at rest but is uncomfortable with movement/palpation posterior knee, concerned about possible tearing something given increased swelling/difficulty with ROM but able to do some ROM w/ assistance but difficulty lifting leg off the bed. Also has some R foot ecchymosis/edema, xray noting metatarsal fracture and discussed walking boot. Dr Scott arrival to room after discussion for recs for MRI of knee for evaluation,agrees to such. Maintain fall precautions, pain control, ice/elevation for now. Further recs pending MRI evaluation. Notable regarding being overall "very healthy", no smoking, occasional/rare alcohol use but did discuss prior BP elevations currently and at the office. Office PCP note rec to check at home but patient honest and endorses he doesn't check at home as he should and has had some bleeding into eye in the past from reported coughing but discussed can also be BP related and rec to have better control. Also noted elevated cholesterol which he knows about but he said he is not very medical and doesn't know a lot about that stuff. Discussed checking A1c in AM for risk stratification but glucose acceptable on arrival but can help guide recs for BP. No CP at this time, stable oxygenation. No nausea/vomiting. Received morphine in ER, no issues w/ pain medications in the past and discussed sliding scale as needed. Full code. Questions/concerns addressed at this time. updated at bedside. Allergies Allergy/AdvReac Type Severity Reaction Status Date / Time No Known Allergies Allergy Unverified 03/15/25 09:53 Home Medications Medication Instructions Recorded Confirmed Type naproxen sodium 220 mg tablet 680 mg PO Q8H PRN Pain 09/02/21 03/15/25 History (Aleve) omeprazole 20 mg capsule,delayed 20 mg PO DAILY #30 caps 01/05/25 03/15/25 Rx release albuterol sulfate 90 mcg/actuation 2 puff inhalation QID PRN 03/15/25 03/15/25 Rx aerosol inhaler shortness of breath or wheezing #8.5 grams azithromycin 250 mg tablet See Rx Instructions PO .COMPLEX #6 03/15/25 03/15/25 Rx tabs Past Med/Surg History Problem List Hypertension Ambulatory dysfunction Knee pain Fall SOB (shortness of breath) Viral URI Hypoxia COVID-19 Medical History No known health problems Thrombocytopenia Dyspnea Acute respiratory failure with hypoxia Cough Surgical History History of hip surgery 1984 Family History Father Prostate cancer Cancer Brother Dementia Denies family history of Ovarian cancer Myocardial infarction Breast cancer Colorectal cancer Social History Smoking Status: Never smoker Tobacco Type: Cigarettes Age Started Using Tobacco: 1; Age Quit Using Tobacco: 0; packs per day: 0; Second Hand Exposure: No; Do You Dip or Chew Tobacco: No; Hx Alcohol Use: Yes Alcohol type: beer Hx Substance Use: No Preferred Language: Guamanian Communication Ability: Effective 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 Beliefs That Will Affect Care: None marital status: Current Living Situation: Alone current occupational status: employed current occupation: Janitoral How many Children do You have: 1 Feels Safe at Home: Yes Childhood Exposure to Second-Hand Smoke: No Diet: regular caffeine: Yes Dental Care, Regularly: Yes Physical Activity Frequency: Daily Seatbelt Use: sometimes Sunscreen Use: Yes (sometimes) Assistive Devices: None Review of Systems 2 Review of Systems: All systems reviewed & are unremarkable except as noted in HPI & below Physical Exam 2 Physical Exam: General; very pleasant 59yo male laying in bed, in room, NAD but mild-mod uncomfortable w/ movement of R knee HEENT: head atraumatic, normocephalic, mm slightly dry, trachea midline Resp; even/unlabored, no wheezing/rales, on room air CV: regular, no significant m/r/g, pulses present, calves nontender GI: +BS, soft/slight distension, no overt tenderness/guarding/rebound no valerio MSK/Neuro: R foot with edema/ecchymosis over lateral aspect, +tenderness, no erythema/warmth, sensation intact LEFT knee with +effusion, anterior abrasion/opening, no appreciable fluid collection/abscess/pus decreased ROM at knee, unable to lift off bed without assistance, ROM at L knee intact, pulses/sensation intact and cap refill wnl Psych: AOx3, cooperative with exam Results & Data Results & Data Vital Signs (Past 12 Hours) Vital Signs Temp Pulse Pulse Resp BP BP Pulse Ox 05/16/25 15:57 68 14 145/97 H 91 05/16/25 14:58 63 17 152/91 H 95 05/16/25 14:03 67 15 147/99 H 96 05/16/25 13:18 05/16/25 13:13 71 15 139/95 97 05/16/25 13:12 75 16 139/95 93 05/16/25 12:42 83 05/16/25 12:38 36.8 C 86 20 171/123 H 05/16/25 12:38 36.8 C 86 20 171/123 H 97 O2 Del Method O2 Flow Rate 05/16/25 15:57 Room Air 05/16/25 14:58 Room Air 05/16/25 14:03 Room Air 05/16/25 13:18 Room Air 05/16/25 13:13 Room Air 05/16/25 13:12 Room Air 05/16/25 12:42 05/16/25 12:38 Room Air 0 05/16/25 12:38 Room Air Laboratory Results 05/16/25 12:38 05/16/25 12:38 Diagnostic Findings Ankle X-Ray 05/16/25 12:35 EXAMINATION: X-ray ankle right minimum 3 view routine CLINICAL HISTORY: Fell off roof last night right foot pain PRIORS: None TECHNIQUE: AP, AP oblique and lateral view. FINDINGS: Bone stock and alignment is normal. No acute fracture or dislocation. Ankle mortise is preserved. No joint space narrowing, erosion or osteophyte. mild soft tissue swelling about the ankle noted. IMPRESSION: No plain film evidence of an acute osseous abnormality or degenerative change. Electronically signed by Ana M Reis 05-16-2025 2:26 PM Foot X-Ray 05/16/25 12:35 EXAM: Radiographs of the Right Foot Complete 3 or More Views INDICATION: Trauma. TECHNIQUE: Frontal, lateral and oblique views of the right foot. Images obtained at 1:25 PM. COMPARISON: No relevant prior studies available. FINDINGS: Bones/joints: There is an acute minimally impacted and displaced fracture of the distal head of the fourth metatarsal. There is old fracture of the distal head of the third metatarsal. Soft tissues: Mild generalized soft tissue swelling noted. No soft tissue gas or radiopaque foreign body noted. IMPRESSION: Acute minimally displaced and impacted fracture of the distal head of the fourth metatarsal. ACT 112: N/A Electronically signed by Loren Toney 05-16-2025 2:39 PM Knee X-Ray 05/16/25 12:35 EXAM: Radiographs of the Left Knee 3 Views INDICATION: Trauma TECHNIQUE: Three views of the left knee. Images obtained at 1:30 PM COMPARISON: No relevant prior studies available. FINDINGS: Bones/joints: There is a joint effusion. There is no visible fracture. Smooth articular surfaces. No erosion. Soft tissues: There is soft tissue swelling medial to the distal femur. 3 mm well-corticated ossicle noted along the lateral margin of the swollen area appears chronic. IMPRESSION: Joint effusion and medial soft tissue swelling without evident fracture. Consider ligamentous injury. ACT 112: N/A Electronically signed by Loren Toney 05-16-2025 2:40 PM Ribs w/Chest X-Ray 05/16/25 12:35 EXAM: Radiographs of the Left Ribs and AP Chest There Views INDICATION: Fell off a roof last night. Pain. TECHNIQUE: Frontal and oblique views of the left ribs and frontal view of the chest. COMPARISON: No relevant prior studies available. FINDINGS: Lungs and pleural spaces: No consolidation or pulmonary edema. No pleural effusion or pneumothorax. Heart: No abnormality noted. No cardiomegaly. Mediastinum: Normal contour. Bones/joints: No fracture, erosion or dislocation. IMPRESSION: No abnormality noted. ACT 112: N/A Electronically signed by Loren Toney 05-16-2025 2:[address] 05/16/25 12:37 EXAM: CT Cervical Spine Without Intravenous Contrast INDICATION: Trauma TECHNIQUE: Axial computed tomography images of the cervical spine without intravenous contrast. Sagittal and coronal reformatted images were created and reviewed. This CT exam was performed using one or more of the following dose reduction techniques: automated exposure control, adjustment of the mA and/or kV according to patient size, and/or use of iterative reconstruction technique. COMPARISON: No relevant prior studies available. FINDINGS: Limitations: None. Vertebrae: The bones are demineralized. Minimal multilevel spondylosis. No fracture or subluxation. Discs/spinal canal/neural foramina: No significant disc space abnormality or stenosis. Soft tissues: No significant abnormality noted. Vasculature: Atherosclerosis of the cervical carotid arteries. Lung apices: No significant abnormality noted. IMPRESSION: No acute abnormality of the cervical spine. ACT 112: N/A Electronically signed by Loren Toney 05-16-2025 13:[address] 05/16/25 12:37 EXAM: CT Head Without Intravenous Contrast INDICATION: Trauma TECHNIQUE: Axial computed tomography images of the head/brain without intravenous contrast. Sagittal and/or coronal reformats are provided. Sagittal and coronal reformatted images were created and reviewed. This CT exam was performed using one or more of the following dose reduction techniques: automated exposure control, adjustment of the mA and/or kV according to patient size, and/or use of iterative reconstruction technique. COMPARISON: 11/18/2020 FINDINGS: Limitations: None. Brain and extra-axial spaces: There is age appropriate cortical atrophy and chronic ischemic periventricular white matter hypodensity. No acute infarct, hemorrhage or mass noted. Bones/joints: No acute changes. Soft tissues: No significant abnormality noted. Vasculature: No acute abnormality noted. Sinuses: No layering fluid in the visualized portions of the paranasal sinuses. Mastoid air cells: No mastoid effusion. Orbits: No significant abnormality noted. IMPRESSION: Cerebral atrophy. No acute changes. ACT 112: N/A Electronically signed by Loren Toney 05-16-2025 13:[address] 05/16/25 14:44 EXAMINATION: CT knee left without contrast CLINICAL HISTORY: Trauma, pain PRIORS: Plain film 05/16/2025 TECHNIQUE: Contiguous axial images were obtained through the left knee without the use of intravenous contrast. Sagittal coronal reformations are supplied. Bone windows are supplied. FINDINGS: Mild osseous demineralization noted. No acute displaced or depressed fracture or dislocation. Very mild medial compartment joint space narrowing with peaking of the tibial spines noted. A large suprapatella joint effusion is noted without lipohemarthrosis. Very mild patella tilt and subluxation, allowing for large joint effusion. No avulsion fracture of the patella. No patella alto or [place]. Moderate prepatellar soft tissue swelling noted. Moderate lateral knee soft tissue swelling also noted. Muscle bulk is normal. Atherosclerotic disease of the popliteal artery present. No subcutaneous gas or radiopaque foreign body. Visualized patella tendon and Hoffa's fat pad within normal limits. No full-thickness tear of the quadriceps insertion onto the patella. The posterior cruciate ligament is identified throughout its course, allowing for CT technique. ACL not well visualized with CT. IMPRESSION: 1. Large suprapatella joint effusion with no acute fracture or dislocation. 2. Mild to moderate prepatellar and lateral knee soft tissue swelling. ACT 112: Positive. There are findings on this examination that require communication between the performing entity and the patient following Patient Test Result Information Act ([place] ACT 112) guidelines. Electronically signed by Ana M Reis 05-16-2025 3:43 PM Supervising Physician Co-Signing Physician Notes The patient was seen by me. The chart was reviewed. Case discussed with MEET Greco. Agree with assessment and plan PG Care Time/CCT Total # of Minutes Spent Total Time Spent with Patient: Total time spent is greater than 50% in coordination of care (as documented) at patient's floor/unit and/or counseling patient: Coding Level of Care Code 63594 INT INP/OBS CARE MIN Diagnoses Fall W19.XXXA Knee pain M25.569 Ambulatory dysfunction R26.2 Hypertension I10
--- NOTE | 2025-05-16 17:54 | Orthopedic Consultation ---
Date of Consultation May 16, 2025 Assessment & Plan (1) Knee pain: (2) Fracture of fourth metatarsal bone of right foot: (3) Ambulatory dysfunction: (4) Hypertension: Plan Ezekiel is a 59-year-old gentleman presenting to the emergency department after a fall that occurred last evening. During his workup, he was found to have a closed, traumatic, displaced right fourth metatarsal head/neck fracture. In addition, he has a left knee effusion with significant left knee pain. With regards the patient's foot, had a long discussion with him regarding the nature of this diagnosis. Discussed in great detail the pathoanatomy, pathophysiology, treatment options. I expressed to him that this fracture is shortened and rotated, however does appear stable. Although there is an intra- articular component, a large portion of the metatarsal head is still intact. I do suspect that this will be a injury that takes some time to get better, however I suspect the patient will have a relatively good functional outcome without operative management. With regards to operative care, given the amount of bone impaction, I suspect that he would require an open approach potentially with placement of cancellous chips in order to tamp up the metatarsal head. I do think that this would radiographically provide a better result, however functionally I am not convinced of this. Patient notes that he is not interested in any surgical management for his foot as this is not really been bothering him and he has been able to walk on this side without any real issue. He does understand the potential for nonunion, malunion as well as posttraumatic osteoarthrosis and deformity of the toe. Given this, we will plan for nonoperative care and the patient should ambulate in a walking boot. An orthotics consult has been placed and he will receive his boot likely tomorrow. For his right foot he can heel weightbear in the boot. With regards to the patient's left knee, he has a significant effusion but x- ray and CT scan were negative for fracture. Patient does have a superficial abrasion over his knee, however no areas seen in the intra-articular space on his CT scan and this does not probe deeper than the dermal layer. My level of suspicion for traumatic arthrotomy is quite low. Given the patient's acute effusion, he may have sustained an ACL rupture. The medical team has ordered an MRI which I think is reasonable at this point. I will return to see the patient tomorrow following completion of the MRI to discuss the next steps of care. further recommendations to follow with regards to the knee following MRI History of Present Illness Reason for Consultation: Left knee and right foot pain History of Present Illness 59yo male presented for difficulty ambulating after falling off ladder last evening. No LOC/dizziness, the ladder came out from under and he slid down with it. Not on any blood thinners, occasional NSAID for joint pain if needed. Had been trying to recover at home with ice and had been walking last evening but reports overnight was unable to stand up/put weight on it. Pain currently controlled at rest but is uncomfortable with movement/palpation posterior knee, concerned about possible tearing something given increased swelling/difficulty with ROM but able to do some ROM w/ assistance but difficulty lifting leg off the bed. patient notes that he has some right foot pain as well but this is not as bad as his knee. Patient denies history of smoking, occasional/rare alcohol. No CP at this time, stable oxygenation. No nausea/vomiting. Allergies Allergy/AdvReac Type Severity Reaction Status Date / Time No Known Allergies Allergy Unverified 03/15/25 09:53 Home Medications Medication Instructions Recorded Confirmed Type naproxen sodium 220 mg tablet 680 mg PO Q8H PRN Pain 09/02/21 03/15/25 History (Aleve) omeprazole 20 mg capsule,delayed 20 mg PO DAILY #30 caps 01/05/25 03/15/25 Rx release albuterol sulfate 90 mcg/actuation 2 puff inhalation QID PRN 03/15/25 03/15/25 Rx aerosol inhaler shortness of breath or wheezing #8.5 grams azithromycin 250 mg tablet See Rx Instructions PO .COMPLEX #6 03/15/25 03/15/25 Rx tabs Patient History Medical History No known health problems Thrombocytopenia Dyspnea Acute respiratory failure with hypoxia Cough Surgical History History of hip surgery 1984 Family History Father Prostate cancer Cancer Brother Dementia Denies family history of Ovarian cancer Myocardial infarction Breast cancer Colorectal cancer Social History Smoking Status: Never smoker Tobacco Type: Cigarettes Age Started Using Tobacco: 0; Age Quit Using Tobacco: 0; packs per day: 0; Second Hand Exposure: No; Do You Dip or Chew Tobacco: No; Hx Alcohol Use: Yes Alcohol type: beer Hx Substance Use: No Preferred Language: Finnish Communication Ability: Effective Director Online Marketing Required: No Beliefs That Will Affect Care: None marital status: Current Living Situation: Alone current occupational status: employed current occupation: [employer] How many Children do You have: 1 Feels Safe at Home: Yes Childhood Exposure to Second-Hand Smoke: No Diet: regular caffeine: Yes Dental Care, Regularly: Yes Physical Activity Frequency: Daily Seatbelt Use: sometimes Sunscreen Use: Yes (sometimes) Assistive Devices: None Review of Systems Review of Systems: negative unless otherwise stated above Physical Exam Physical Exam: On physical examination of the patient's left knee he has a small superficial abrasion without any deep probing noted on the lateral aspect of his knee. He has a moderate-sized effusion. He has tenderness palpation diffusely about his knee. With micromotion, the patient has no pain of the knee. patient unable to perform straight leg raise due to knee pain. On physical examination of the patient's right foot, he has tenderness palpation at his fourth metatarsal head/neck junction. He has mild ecchymosis noted. No open wounds appreciated. Results & Data Vital Signs (Past 12 Hours) Vital Signs Temp Pulse Pulse Resp BP BP Pulse Ox 05/16/25 17:05 70 05/16/25 17:00 71 20 152/110 H 96 05/16/25 16:39 71 20 145/99 H 98 05/16/25 16:37 75 18 145/99 H 98 05/16/25 15:57 68 14 145/97 H 91 05/16/25 14:58 63 17 152/91 H 95 05/16/25 14:03 67 15 147/99 H 96 05/16/25 13:18 05/16/25 13:13 71 15 139/95 97 05/16/25 13:12 75 16 139/95 93 05/16/25 12:42 83 05/16/25 12:38 36.8 C 86 20 171/123 H 05/16/25 12:38 36.8 C 86 20 171/123 H 97 O2 Del Method O2 Flow Rate 05/16/25 17:05 05/16/25 17:00 Room Air 05/16/25 16:39 Room Air 05/16/25 16:37 Room Air 05/16/25 15:57 Room Air 05/16/25 14:58 Room Air 05/16/25 14:03 Room Air 05/16/25 13:18 Room Air 05/16/25 13:13 Room Air 05/16/25 13:12 Room Air 05/16/25 12:42 05/16/25 12:38 Room Air 0 05/16/25 12:38 Room Air
[2025-05-16] MEDS ORDERED: ONDANSETRON INJ 2 MG/ML 2 ML VIAL IV PRN (19:07)
[2025-05-16] MEDS ORDERED: KETOROLAC TROMETHAMINE 15 MG/ML VIAL IV PRN (19:07)
[2025-05-16] MEDS ORDERED: MoRPHine SULFATE 2 MG/ML CARP IV PRN (19:07)
[2025-05-16] MEDS ORDERED: ALBUTEROL HFA 8 GM INHALER INH PRN (19:07)
[2025-05-16] MEDS: ACETAMINOPHEN 500 MG TAB PO SCH (19:30)
[2025-05-16] MEDS: MoRPHine SULFATE 4 MG/ML 1 ML CARP\\VIAL IV PRN (19:30)
[2025-05-16] MEDS: DOCUSATE SODIUM 100 MG CAP PO SCH (20:13)
--- NOTE | 2025-05-16 20:20 | Magnetic Resonance Report ---
EXAM: MR knee LT wo con CLINICAL HISTORY: fall, effusion, eval acl tear vs other TECHNIQUE: MRI evaluation of the left knee in the coronal, sagittal and axial planes was performed in multiple pulsing sequences without contrast administration. Images were sent through PACs for diagnostic interpretation. 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 FINDINGS: Articulations: Moderate joint effusions with no intra-articular loose bodies. Subarticular patchy marrow edema is seen, implicating the lateral femoral condyle with increased signal of the overlying articular cartilage. A few smaller marrow patches of edema signal are seen scattered in the examined bones. Patella: it shows subarticular patchy marrow edema with increased signal and denudation of the overlying articular cartilage. The medial and lateral retinacula are intact. Menisci: The medial meniscus: subtle degenerative signal/grade I of its posterior horn. No tears. The lateral meniscus: No tears. No abnormal signal. Ligaments: The anterior cruciate ligament is seen thickened and showing increased intrasubstance signal. No complete fiber disruption. The posterior cruciate ligament: Intact. The medial collateral ligament is seen showing a slight increase in signal with chidi-ligamentous edema/fluid signal. No fiber discontinuity. The lateral collateral ligament is seen showing a slight increase in signal with chidi-ligamentous edema/fluid signal. No fiber discontinuity.. Arcuate ligament: Intact with no abnormal signals. The fibular collateral ligament is Intact. Muscles: The popliteus tendon shows increased signal. Normal appearance of the surrounding musculature. No muscle atrophy or abnormal signal changes. Prepatellar subcutaneous/subfacial soft tissue edema and fluid signal. Extensor Mechanism: The quadriceps femoris tendon is unremarkable. The patellar tendon is unremarkable. Soft Tissues: ill-defined edema and fluid signal are seen along the intermuscular spaces along the posterior aspect of the knee, more evident along the semimembranosus/medial head of gastrocnemius bursa. Prepatellar subcutaneous/subfacial soft tissue edema and fluid signal. subcutaneousfluid is also seen along lateral aspect of the knee alongside the iliotibial band.. The scanned muscle groups are unremarkable. Normal flow void in the popliteal artery and vein. IMPRESSION: 1. Status post-trauma showin. Lateral femoral condyle and patellar osteochondral injuries. 3. Sprain/intertitial injury of ACL. 4. Grade I/II injury of medial and lateral collateral ligaments. 5. Posterior intermuscular ill-defined edema and fluid signal more along the semimembranosus/medial head of gastrocnemius bursa, likely post-traumatic sequelae; however, could also be related to leaked Edwards's cyst. 6. Popliteus tendenitis. 7. Moderate joint effusions with no intra-articular loose bodies. 8. Prepatellar and lateral subcutaneous/subfacial soft tissue edema and fluid signal. Electronically signed by Danyel Rice 05-16-2025 8:20 PM
[2025-05-17 06:49] LABS: Anion Gap 7.0 (3-11); Blood Urea Nitrogen 12.0 mg/dl (6-23); Calcium 8.8 mg/dl (8.6-10.3); Carbon Dioxide 29.0 mmol/L (21-32); Chloride 103.0 mmol/L (98-107); Creatinine Clr Calc Pharmacy 92.9 ml/min; Glucose 135.0 mg/dl (70-99(Fasting)); Potassium 3.8 mmol/L (3.5-5.1); Sodium 139.0 mmol/L (136-145)
[2025-05-17] MEDS: POLYETHYLENE (MIRALAX) 17 GM PACK PO SCH (08:00)
[2025-05-17 08:05] LABS: Hemoglobin A1C 5.6 % (4.5-5.6)
--- NOTE | 2025-05-17 08:10 | Orthopedic Progress Note ---
Date of Service May 17, 2025 Assessment & Plan (1) Knee pain: (2) Fracture of fourth metatarsal bone of right foot: (3) Ambulatory dysfunction: (4) Hypertension: Plan Ezekiel is a 59-year-old gentleman who has been admitted after a fall that occurred 2 days ago. During his workup, he was found to have a closed, traumatic, displaced right fourth metatarsal head/neck fracture. In addition, he has a left knee effusion with significant left knee pain. With regards the patient's foot, had a long discussion with him regarding the nature of this diagnosis. Discussed in great detail the pathoanatomy, pathophysiology, treatment options. I expressed to him that this fracture is shortened and rotated, however does appear stable. Although there is an intra- articular component, a large portion of the metatarsal head is still intact. I do suspect that this will be a injury that takes some time to get better, however I suspect the patient will have a relatively good functional outcome without operative management. With regards to operative care, given the amount of bone impaction, I suspect that he would require an open approach potentially with placement of cancellous chips in order to tamp up the metatarsal head. I do think that this would radiographically provide a better result, however functionally I am not convinced of this. Patient notes that he is not interested in any surgical management for his foot as this is not really been bothering him and he has been able to walk on this side without any real issue. He does understand the potential for nonunion, malunion as well as posttraumatic osteoarthrosis and deformity of the toe. Given this, we will plan for nonoperative care and the patient should ambulate in a walking boot. An orthotics consult has been placed and he will receive his boot likely tomorrow. For his right foot he can heel weightbear in the boot. With regards to the patient's left knee, he has a significant effusion but x- ray and CT scan were negative for fracture. Patient does have a superficial abrasion over his knee, however no air is seen in the intra-articular space on his CT scan and this does not probe deeper than the dermal layer. Patient also had an MRI completed last evening which was personally reviewed. This demonstrates chondral injuries of the medial femoral condyle as well as interstitial tearing of the ACL without acute osseous abnormality. In evaluating the joint capsule, there does not appear to be any rents, however the patient does have a large effusion. I had a long discussion the patient regarding his knee. I discussed with him that at this point, without any significant finding on his MRI as to why he has this effusion, my concern for traumatic arthrotomy is slightly increased. My recommendation to him this morning was for a saline challenge of his knee to ensure that there is no egress of fluid from the anterior knee wound, at that time we would also then drain his knee of this effusion to help him with pain. Patient notes that his pain is improved significantly and he is convinced that his knee wound only represents a small skin abrasion and as such he would not provide consent for saline challenge of the knee. I expressed to him that if this possible that if he had a traumatic arthrotomy and this remained untreated, he is at risk of septic arthritis of the knee and he expressed understanding. I would recommend a tall cam boot for his right lower extremity and heel weightbearing as well as a knee brace to help with his knee pain. Given the patient's wishes, I suspect that working on edema control and range of motion with physical therapy was very helpful to him. Admission and Anticipated Discharge Date Admission Date: May 16, 2025 Subjective Patient seen and evaluated in his hospital room this morning. Notes that his pain is improving. Review of Systems Review of Systems: All systems reviewed & are unremarkable except as noted in HPI & below Physical Exam Physical Exam: On physical examination of the patient's left knee he has a small superficial abrasion without any deep probing noted on the lateral aspect of his knee. He has a moderate-sized effusion. He has tenderness palpation diffusely about his knee. With micromotion, the patient has no pain of the knee. patient unable to perform straight leg raise due to knee pain. On physical examination of the patient's right foot, he has tenderness palpation at his fourth metatarsal head/neck junction. He has mild ecchymosis noted. No open wounds appreciated. Results & Data Vital Signs (Past 12 Hours) Vital Signs Temp Pulse Pulse Resp BP Pulse Ox O2 Del Method 05/17/25 02:44 36.6 C 71 18 132/84 92 Room Air 05/16/25 23:25 70 05/16/25 23:23 36.6 C 66 18 121/81 94 Room Air Diagnostic Findings MRI of the left knee was personally interpreted and reviewed. This demonstrates interstitial tearing of the ACL, low-grade injuries to the MCL and LCL T2 hyperintensity within the subchondral bone of the medial femoral condyle and lateral patella facet. (1) Knee pain Chronicity: acute Laterality: left Qualified Code(s): M25.562 - Pain in left knee (2) Fracture of fourth metatarsal bone of right foot Encounter type: initial encounter Fracture type: closed Physeal involvement: unspecified Qualified Code(s): S92.341A - Displaced fracture of fourth metatarsal bone, right foot, initial encounter for closed fracture
[2025-05-17 08:23] VITALS: BP 126/87; RESP 20; TEMP 97.3; O2SAT 93
--- NOTE | 2025-05-17 11:06 | Electrocardiogram Report ---
Test Reason : Blood Pressure : */* mmHG Vent. Rate : 84 BPM Atrial Rate : 84 BPM P-R Int : 186 ms QRS Dur : 108 ms QT Int : 386 ms P-R-T Axes : -19 -11 -24 degrees QTcB Int : 456 ms Normal sinus rhythm Left ventricular hypertrophy with repolarization abnormality ( R in aVL ) Inferior infarct , age undetermined Abnormal ECG When compared with ECG of 02-Sep-2021 11:05, Inverted T waves have replaced nonspecific T wave abnormality in Inferior leads Confirmed by Jorden Scott ([id number]) on 05/17/2025 11:06:18 AM Referred By: REFERRED SELF Confirmed By: Jorden Scott
--- NOTE | 2025-05-17 12:05 | Discharge Summary ---
Discharge Summary Date of Service May 17, 2025 Principal Dx & Hospital Course #1 = Principal Diagnosis (1) Fall: from ladder (2) Knee pain: Left knee prepatellar traumatic effusion and injury to left ACL. Appreciate orthopedic consultation and management. The patient refuses aspiration and other treatment measures. He will follow-up with orthopedics as an outpatient (3) Fracture of fourth metatarsal bone of right foot: The patient has been seen by orthopedics. Walking boot will be placed before discharge. Use Oxy IR as needed for pain control (4) Ambulatory dysfunction: Walking boot for the right foot. Use a walker if necessary (5) Hypertension: Noted while hospitalized. Mild. Follow-up with PCP Plan Home today, May 17 Admission HPI Per Admitting Provider 59yo male presented for difficulty ambulating after falling off ladder last evening. No LOC/dizziness, the ladder came out from under and he slid down with it. CT head negative, notes cerebral atrophy. CT cervical spine negative. Not on any blood thinners, occasional NSAID for joint pain if needed. Had been trying to recover at home with ice and had been walking last evening but reports overnight was unable to stand up/put weight on it. Imaging noting large suprapatellar joint effusion without acute fracture or dislocation. Mild-moderate prepatellar and lateral knee soft tissue swelling. Pain currently controlled at rest but is uncomfortable with movement/palpation posterior knee, concerned about possible tearing something given increased swelling/difficulty with ROM but able to do some ROM w/ assistance but difficulty lifting leg off the bed. Also has some R foot ecchymosis/edema, xray noting metatarsal fracture and discussed walking boot. Dr Scott arrival to room after discussion for recs for MRI of knee for evaluation,agrees to such. Maintain fall precautions, pain control, ice/elevation for now. Further recs pending MRI evaluation. Notable regarding being overall "very healthy", no smoking, occasional/rare alcohol use but did discuss prior BP elevations currently and at the office. Office PCP note rec to check at home but patient honest and endorses he doesn't check at home as he should and has had some bleeding into eye in the past from reported coughing but discussed can also be BP related and rec to have better control. Also noted elevated cholesterol which he knows about but he said he is not very medical and doesn't know a lot about that stuff. Discussed checking A1c in AM for risk stratification but glucose acceptable on arrival but can help guide recs for BP. No CP at this time, stable oxygenation. No nausea/vomiting. Received morphine in ER, no issues w/ pain medications in the past and discussed sliding scale as needed. Full code. Questions/concerns addressed at this time. updated at bedside. Discharge Plan Discharge Items Patient Disposition: Home - Self-Care Reason For Visit: FALL, KNEE EFFUSION, AMBULATORY DYSFUNCTION Discharge Diagnosis: Fall from ladder, left knee prepatellar effusion with left ACL injury, right distal fourth metatarsal fracture, ambulatory dysfunction Condition on Discharge: Fair Activity: Per Instructions section Activity Comment: As tolerated Non-emergency contact: Primary Care Provider and Surgeon Call non-emergency contact if: your symptoms worsen Follow-up/Referrals: Swetha Littlejohn CRNP [Primary Care Provider] - Diet: Regular and Heart Healthy Addtl Attending Provider Instructions: Wear walking boot on the right foot until cleared by orthopedics. Follow-up with orthopedics as soon as possible. Use oxycodone as needed for pain control. [facility] Pending Studies at Discharge: No Stand-Alone Forms: [employer], Smoking Cessation Medications and DC Order Prescriptions: New oxycodone 5 mg Tablet 5 mg PO Q6H PRN (Reason: pain) Qty: 20 0RF Continued omeprazole 20 mg capsule,delayed release(DR/EC) 20 mg PO DAILY Qty: 30 11RF albuterol sulfate 90 mcg/actuation HFA aerosol inhaler 2 puff inhalation QID PRN (Reason: shortness of breath or wheezing) Qty: 8.5 0RF azithromycin 250 mg tablet See Rx Instructions PO .COMPLEX Qty: 6 0RF Rx Instructions: For 250 mg dose pack: take 500 mg today (day 1), then 250 mg for 4 days (days 2-5) PO naproxen sodium [Aleve] 220 mg Tablet 680 mg PO Q8H PRN (Reason: Pain) Discharge Orders: Discharge Order (Routine); Ordered 05/17/25 Ordered By: Rio Morillo Admission Data Admit Date/Time: 05/16/25 16:45 Attending Provider: Rio Morillo Admit Provider: Rio Morillo Primary Care Provider: Swetha Littlejohn Other Providers: Julio Scott [facility] Stay Data Consultations 05/16/25 16:38 ED Decision to Admit Stat 05/16/25 16:45 Consult Orthopedic Surgery Routine Diagnostic Imagining Performed 05/16/25 12:37 CT cervical spine wo con Stat CT head/brain wo con Stat 05/16/25 14:44 CT knee LT wo con Stat 05/16/25 17:07 MRI Knee [MR knee LT wo con] Urgent Pending Results Patient Have Any Pending Studies at Discharge: No Discharge Instructions Given to Patient (Per Discharging Provider) Wear walking boot on the right foot until cleared by orthopedics. Follow-up with orthopedics as soon as possible. Use oxycodone as needed for pain control. A prescription has been sent to the [facility]. Total Time Total Time Spent Total Time Spent (In Minutes): 45 minutes Coding Level of Care Code 71662 INP/OBS DISCH >30 MIN Diagnoses Fall W19.XXXA Knee pain M25.562 Chronicity: acute Laterality: left Fracture of fourth metatarsal bone of right foot S92.341A Encounter type: initial encounter Fracture type: closed Physeal involvement: unspecified Ambulatory dysfunction R26.2 Hypertension I10
[2025-05-17 12:09] VITALS: PULSE 71
== END 2025-05-17 16:51 | disposition home or self-care (01) | DRG 563 ==
LOC: ED 12:26 → 2N 16:45